=== PATIENT | male | born 1955 | race Caucasian/White ===

== ENCOUNTER → 2019-09-02 14:37 | Outpatient (BNVA) | payer MEDICARE, MEDICAID, SELFPAY | PROVIDERS: Family Provider Nurse Practitioner Family; PCP Nurse Practitioner Family; Visit Provider Specialist | DX: R29.90 Unspecified symptoms and signs involving the nervous system (principal); G50.0 Trigeminal neuralgia | CPT/HCPCS: 99213 ==

== ENCOUNTER → 2019-11-04 08:26 | Outpatient (BNVA) | payer MEDICARE, MEDICAID, OTHER, SELFPAY | PROVIDERS: Family Provider Nurse Practitioner Family; PCP Nurse Practitioner Family; Visit Provider Nurse Practitioner Family | DX: I10 Essential (primary) hypertension (principal); Z12.5 Encounter for screening for malignant neoplasm of prostate; M19.90 Unspecified osteoarthritis, unspecified site; Z13.6 Encounter for screening for cardiovascular disorders; F41.9 Anxiety disorder, unspecified; F32.9 Major depressive disorder, single episode, unspecified; E55.9 Vitamin D deficiency, unspecified; Z79.899 Other long term (current) drug therapy | CPT/HCPCS: 80053; 80061; 81003; 82306; 83036; 84443; 85025; G0103 ==

== ENCOUNTER 2020-06-23 13:40 | Outpatient (CLI) | payer MEDICARE, MEDICAID, OTHER, SELFPAY ==
--- NOTE | 2020-06-23 13:51 | XR_ITS ---
WS: [id number] LUMBAR SPINE: 7 VIEWS TECHNIQUE: AP, oblique, lateral, L5-S1 spot. Upright lateral projections in neutral, flexion and exte nsion. HISTORY: S33.5XXA - Sprain of ligaments of lumbar spine, initial e... COMPARISON: None available. Moderate rotation of vertebral bodies. 3 mm retrolisthesis of L3. Severe disc space narrowing at L4-5 and L5-S1 with associated facet joint arthritis. During flexion and extension there is no change in alignment. Mild compression deformity of L1. Mild foraminal narrowing at L4-5 and L5-S1. SI joints are symmetric bilaterally. No soft tissue abnormalities. Scattered atherosclerotic plaque within the aorta. XR/XR lumbar spine 6V w f/e [id number] IMPRESSION: 1. Severe degenerative disc disease at L4-5 and L5-S1 with associated facet riaz int arthritis. 2. Mild L1 compression fracture, age indeterminate. New since 11/07/2010 MRI. 3. No instability during flexion or extension. 4. Moderate atherosclerosis aorta.
--- NOTE | 2020-06-23 13:51 | XR_ITS ---
WS: [id number] THORACIC SPINE TECHNIQUE: AP and lateral views are performed. HISTORY: M54.6 - Pain in thoracic spine COMPARISON: None available. Normal posterior alignment. Mild RIGHT curvature mid thoracic spine. No fractures identified. Pedicle s are intact. XR/XR thoracic spine 3V* [id number] IMPRESSION: Mild curvature thoracic spine. No fractures.
== END 2020-06-23 13:41 | disposition home or self-care (01) ==
PROVIDERS: PCP Nurse Practitioner Family; Visit Provider Nurse Practitioner Family
DX: S33.5XXA Sprain of ligaments of lumbar spine, initial encounter (principal); I70.0 Atherosclerosis of aorta; S32.018A Other fracture of first lumbar vertebra, initial encounter for closed fracture; X58.XXXA Exposure to other specified factors, initial encounter
CPT/HCPCS: 72072; 72114

== ENCOUNTER 2020-07-07 12:42 | Outpatient (CLI) | payer MEDICARE, MEDICAID, SELFPAY ==
--- NOTE | 2020-07-07 13:00 | MR_ITS ---
WS: [id number] MRI LUMBAR SPINE NONCONTRAST TECHNIQUE: Sagittal T1, T2 and STIR imaging. Axial T1 and T2 imaging. CLINICAL INFORMATION: M51.36 - Other intervertebral disc degeneration, lumbar r... COMPARISON: MRI October 2010 FINDINGS: Mild lumbar curve. No acute compression. No high-grade central canal stenosis. Mild chronic compressi on superior endplates at L1 and L2. Disc space narrowing worse L4-L5 and L5-S1. This is progressed si nce 2010. L1-L2: Normal. L2-L3: Mild annular bulging. Spinal canal and foramen are patent. Mild facet arthropathy. L3-L4: Mild annular bulging. Small proximal left foraminal protrusion with mild left foraminal narrow ing. Narrowing of the left subarticular recess with contact of the traversing left L4 nerve root. Mod erate facet arthropathy. Right foramen is patent. L4-L5: Mild annular bulging with narrowing of the subarticular recess bilaterally. Slight encroachmen t traversing L5 nerve roots. Mild right greater than left foraminal narrowing. Mild facet arthropathy . L5-S1: Mild disc bulging and osteophytic ridging. Mild facet arthropathy. Spinal canal and foramen ar e patent. Small bilateral renal cysts. Visualized pelvic bony structures: Normal. Paravertebral soft tissues: Normal. MR/MR lumbar spine wo con* [id number] IMPRESSION: 1. Mild lumbar curve. No acute compression. No high-grade central canal stenos is. 2. Small left foraminal protrusion L3-4 with mild left foraminal narrowing. Co ntact of the exiting left L3 nerve root. Slight impingement traversing left L4 nerve root. 3. Right eccentric disc bulging L4-5 slightly contacts the exiting right L4 ne rve root with mild right L4-5 foraminal narrowing. 4. Mild to moderate facet arthropathy L3-L4 and L4-L5.
== END 2020-07-07 12:43 | disposition home or self-care (01) ==
LOC: RADSHAW 12:47
PROVIDERS: PCP Nurse Practitioner Family; Visit Provider Nurse Practitioner Family
DX: M51.36 Other intervertebral disc degeneration, lumbar region (principal); M47.816 Spondylosis without myelopathy or radiculopathy, lumbar region; M51.26 Other intervertebral disc displacement, lumbar region
CPT/HCPCS: 72148

== ENCOUNTER → 2020-08-27 14:55 | Outpatient (BNVA) | payer MEDICARE, MEDICAID, SELFPAY | PROVIDERS: PCP Nurse Practitioner Family; Visit Provider Orthopaedic Surgery | DX: Z20.822 Contact with and (suspected) exposure to COVID-19 (principal) | CPT/HCPCS: 87635 ==

== ENCOUNTER 2020-09-01 11:41 | Day surgery (SDC) | payer MEDICARE, MEDICAID, SELFPAY ==
[2020-08-31 12:45] VITALS: BMI 19.8
--- NOTE | 2020-08-31 14:02 | ANES.PREANE2 ---
Pre-Anesthetic Assessment Pre-Anesthetic Assessment: Height/Weight: Height 1.8 m Weight 64.41 kg Proposed Procedure: Operation Date: 09/01/20 13:25 Proposed Procedures p MIS Lumbar decompression L3/4 L4/5 59416 03149 m48.062(Not Applicable) - Mitchel Cloud, DO Was Beta Loree taken within 24 hours: N/A Was Clonidine taken within 24 hours: N/A Social: Social History: No alcohol and No tobacco Exam: Pre-Anes Outpt Exam: alert, oriented x 3, clear to auscultation bilaterally and regular rate & rhythm Airway: Submandibular: WNL Cervical ROM: WNL MP: 2 Dentition: Chipped GI: GI: GERD Musc/skel: Musc/skel: Lower Back Pain and OA/DJD Comments: Trigeminal neuralgia Neuropsych: Neuropsych: Anxiety Anesthetic Plan: ASA status: 3 Anesthesia: General PFSH Anesthesia PFSH: Medical History Anxiety and depression Back pain, lumbosacral DDD (degenerative disc disease), lumbar Essential hypertension Gastroesophageal reflux disease Lumbar back pain Lumbar back sprain Osteoarthritis Seborrheic dermatitis Thoracic back pain Trigeminal neuralgia Vitamin D deficiency Surgical History H/O shoulder surgery Family History Other Cancer Social History Smoking and tobacco status: never smoked Data Anesthesia Cardiac Studies: No Data to Display
--- NOTE | 2020-09-01 | XR_ITS ---
WS: [id number] Lumbar spine, C-arm fluoroscopy, 09/01/2020 Clinical Data: lumbar decompression Comparison: Lumbar spine, 06/23/2020. Findings: Dr. Cloud performed lumbar decompression at L3-L4. XR/XR lumbar spine 1V port [id number] Impression: Lumbar decompression.
--- NOTE | 2020-09-01 | SCC_ITS ---
Procedure Done: 1. L3/4 bilateral laminectomy with partial facetectomies 2. L4/5 bilateral laminectomies with partial facetectomies 16.8 seconds of fluoroscopic guidance, for a cumulative dose of 3.89 mGy, was provided to Dr. Cloud by the radiology department. C-arm images of the lumbar spine were saved for the patient's permanent record. [facility]
[2020-09-01 12:37] VITALS: BP 158/88; PULSE 55; RESP 18; TEMP 36.3; O2SAT 98
--- NOTE | 2020-09-01 12:51 | W.PM.OPSUD ---
Surgery/Procedure H&P Update DATE OF PROCEDURE: September 01, 2020 DATE H&P PERFORMED: 09/01/20 PREOP DIAGNOSIS: lumbar stenosis PLANNED PROCEDURE: Operation Date: 09/01/20 13:25 Proposed Procedures p MIS Lumbar decompression L3/4 L4/5 [id number] m48.062(Not Applicable) - Mitchel Cloud DO
--- NOTE | 2020-09-01 12:52 | P.HP_ITS ---
Providers/Chief Complaint Primary Care Provider: AYESHA Torres Chief Complaint: lumbar decompression [id number] History of Present Illness Hussain Parada is a 65 year old male patient here for evaluation of his low back pain. Onset: [gradual] Duration: [many years] Characteristics: [Sharp, stabbing, dull, aching] Severity: [moderate] Location: [low back] Radiating symptoms: [none] Aggravating factors: [prolonged standing & walking, bending, lifting, ] Alleviating factors: [nothing] Neuro deficits: denies numbness, tingling, weakness, incontinence of bowel/bladder, saddle anesthesia. Prior tx: [injections, narcotics, PT] Review of Systems Narrative: General ROS: negative for weight changes, fever ENT ROS: negative for nasal congestion, drainage or bleeding, sore throat, dysphagia or ear pain Eyes: PERRL Hematological and Lymphatic ROS: negative for swollen glands or abnormal bleeding Endocrine ROS: negative for polyuria/polydpsia or new changes in weight Respiratory ROS: negative for cough, shortness of breath, or wheezing Cardiovascular ROS: negative for chest pain or dyspnea on exertion Gastrointestinal ROS: negative for reflux, abdominal pain, change in bowel habits, or black or bloody stools Musculoskeletal ROS: negative for back pain, neck pain, or joint pain or swelling except for current problem Neurological ROS: negative for TIA or stoke symptoms Skin: no rashes Medications/Allergies Home Medications Medication Instructions Recorded Confirmed Last Taken Type lamotrigine 200 mg tablet 200 mg PO BID #60 tab 09/02/19 08/31/20 Unknown Rx cholecalciferol (vitamin D3) 1,250 50,000 unit PO .weekly 90 Days #12 11/14/19 09/01/20 08/31/20 Rx mcg (50,000 unit) capsule cap meloxicam 15 mg tablet See Rx Instructions .ROUTE 05/03/20 09/01/20 08/31/20 Rx .COMPLEX #90 tab pantoprazole 40 mg PO DAILY 08/31/20 09/01/20 08/30/20 History sennosides-docusate sodium [Stool 8.6 - 50 tab PO DAILY 08/31/20 08/31/20 Unknown History Softener-Laxative] Allergies Allergy/AdvReac Type Severity Reaction Status Date / Time No Known Allergies Allergy Verified 07/08/20 10:36 PFSH Acute PFSH: Medical History Anxiety and depression Back pain, lumbosacral DDD (degenerative disc disease), lumbar Essential hypertension Gastroesophageal reflux disease Lumbar back pain Lumbar back sprain Osteoarthritis Seborrheic dermatitis Thoracic back pain Trigeminal neuralgia Vitamin D deficiency Surgical History H/O shoulder surgery Family History Other Cancer Social History Smoking and tobacco status: never smoked Vitals/I&O/Wt Last Vital Signs Temp 97.4 F L 09/01/20 12:37 Pulse 55 L 09/01/20 12:37 Resp 18 09/01/20 12:37 BP 158/88 09/01/20 12:37 Pulse Ox 98 09/01/20 12:37 Weight last 48 hrs Weight 142 lb Physical Exam Narrative: EXAM NARRATIVE: CONSTITUTIONAL: The patient is a normal appearing [] in no apparent distress. GENERAL: Patient in no acute distress. CARDIAC: Regular rate and rhythm. CHEST: Normal inspiratory effort, normal respiratory rate. ABDOMEN: Soft and nontender. SKIN: Clear, warm and intact. NEURO?PSYCH: The patient is alert and oriented to person, place and time. Sensorv /SILT Motor StrengthShoulder abduction C5 5/5Wrist extension C6 5/5Elbow extension C7 5/5Hand [employer] Specialist C8 5/5Finger abduction T15/5 Radial/ Ulnar/ Median n intact LowerSensory (SILT)Motor StrengthHin flexion L2/3Ant/inner thigh 5/5Hip adduction L2/3 5/5Knee extension L4 Lat thigh, 5/5Toe dorsiflexion L5 5/5Ankle dorsiflexion L5/ R56Oqohukc flexion S1 5/5 DTRBleeps 2+Triceps 2+Brachioradialis 2+Patellar 2+Achilles 2+ MUSCULOSKELETAL: [] UPPEREXTREMITIES: The patient had full active ROM in fingers, wrist, elbow, and shoulder. The patient demonstrated ability to fully flex/extend/abduct/adduct fingers, make ok sign, cross 2nd/3rd digits, extend 1st digit fully.. Radial pulse 2+, CR<2 seconds. LOWER EXTREMITIES: Pt has full, active ROM of toes, ankle, knee, and hip. Dorsalis pedis/posterior tibialis pulses 2+, CR<2 seconds. SPINE: Skin warm, dry, intact. A&P Assessment and plan (1) Lumbar stenosis with neurogenic claudication: MIS decompression Status: Acute Attestations Medical Necessity Statement*: failed conservative tx Coding Level of Care Code Acute Portuguese Tutor for [facility] Fwd Diagnoses Lumbar stenosis with neurogenic claudication M48.062
--- NOTE | 2020-09-01 13:10 | P.ANESUD_ITS ---
Pre-Anesthetic Update Pre-Anesthetic Assessment: Date of Surgery/Procedure: 09/01/20 Preop Sonia gnosis: lumbar stenosis Proposed Procedure: Operation Date: 09/01/20 13:25 Proposed Procedures p MIS Lumbar decompression L3/4 L4/5 96473 00713 m48.062(Not Applicable) - Mitchel Cloud, DO Any changes to Pre-Anesthetic Assessment?: No Last Intake: Intake Last Liquid Date 08/31/20 Last Liquid Time 18:00 Last Solid Date 08/31/20 Last Solid Time 18:00 Vitals: Temperature 97.4 F L 09/01/20 12:37 Temperature Source Temporal Artery S can 09/01/20 12:37 Pulse Rate 55 L 09/01/20 12:37 Respiratory Rate 18 09/01/20 12:37 Blood Pressure 158/88 09/01/20 12:37 Blood Pressure Silvia n 111 09/01/20 12:37 Pulse Oximetry 98 09/01/20 12:37 Oxygen Delivery Me thod 09/01/20 12:37 Exam: Pre-Anes Outpt Exam: alert, oriented x 3, clear to auscultation bilaterally and regular rate & rhythm Cardiac Studies: No Data to Display
--- NOTE | 2020-09-01 13:17 | P.ANESUD_ITS ---
Pre-Anesthetic Update Pre-Anesthetic Assessment: Date of Surgery/Procedure: 09/01/20 Preop Sonia gnosis: lumbar stenosis Proposed Procedure: Operation Date: 09/01/20 13:25 Proposed Procedures p MIS Lumbar decompression L3/4 L4/5 [id number] m48.062(Not Applicable) - Mitchel Cloud, DO Any changes to Pre-Anesthetic Assessment?: No Last Intake: Intake Last Liquid Date 08/31/20 Last Liquid Time 18:00 Last Solid Date 08/31/20 Last Solid Time 18:00 Vitals: Temperature 97.4 F L 09/01/20 12:37 Temperature Source Temporal Artery S can 09/01/20 12:37 Pulse Rate 55 L 09/01/20 12:37 Respiratory Rate 18 09/01/20 12:37 Blood Pressure 158/88 09/01/20 12:37 Blood Pressure Silvia n 111 09/01/20 12:37 Pulse Oximetry 98 09/01/20 12:37 Oxygen Delivery Me thod 09/01/20 12:37 Exam: Pre-Anes Outpt Exam: alert, oriented x 3, clear to auscultation bilaterally and regular rate & rhythm Cardiac Studies: No Data to Display
--- NOTE | 2020-09-01 14:38 | PM.OP ---
Operative Report Date of procedure: September 01, 2020 Pre-op Diagnosis: lumbar stenosis Post-op diagnosis: same Procedure Done: 1. L3/4 bilateral laminectomy with partial facetectomies 2. L4/5 bilateral laminectomies with partial facetectomies Surgeon: Mitchel Cloud Anesthesia: General Estimated blood loss (mL): 10 Condition: stable Disposition: PACU Procedure: 1. L3/4 bilateral laminectomy with partial facetectomies 2. L4/5 bilateral laminectomies with partial facetectomies Patient is brought to the operative suite. After undergoing anesthesia they are placed in the supine position. All areas of impingement are well padded. Patient is then prepped and draped in the normal sterile fashion. A skin incision is made over the L4/5 level. This is confirmed under c-arm guidance. A series of dilators are passed and the tubular retractor is docked on the L4 lamina. A bovie is used to clear the soft tissue off the lamina and the L 4/5 facet joint. A high speed sean is then used to perform the laminectomy and take down the medial aspect of the L 4/5 facet joint. A kerrison rongeure was then used to take down the remaining lamina and smooth the edge of the laminectomy up to the point where the ligamentum flavum attaches. Attention was then brought to the medial aspect of the facet joint. The remaining medial aspect of the superior and inferior aspect of the facet joint were taken down with the kerrison from the pedicle of L4 to L 5. The facet joint had significant hypertrophy. Attention was then brought to the Ligamentum Flavum. The ligament was taken down from the lamina of L4 to L5 and out medially to the remaining facet joint. The ligament was thick. The dura was then exposed. The dura was in good repair. The L4 nerve was then traced with a curette out the L4/5 foramen and found to be adequately decompressed. The L5 nerve was traced with a curette around the L5 pedicle. The lateral recess was opened with a kerrison helping to further decompress the L5 nerve. Wound is then irrigated copiously with saline and surgiflo is used to stop any bleeding. The tubular retractor is removed A skin incision is made over the L3/4 level. This is confirmed under c-arm guidance. A series of dilators are passed and the tubular retractor is docked on the L3 lamina. A bovie is used to clear the soft tissue off the lamina and the L 3/4 facet joint. A high speed sean is then used to perform the laminectomy and take down the medial aspect of the L 3/4 facet joint. A kerrison rongeure was then used to take down the remaining lamina and smooth the edge of the laminectomy up to the point where the ligamentum flavum attaches. Attention was then brought to the medial aspect of the facet joint. The remaining medial aspect of the superior and inferior aspect of the facet joint were taken down with the kerrison from the pedicle of L3 to L 4. The facet joint had significant hypertrophy. Attention was then brought to the Ligamentum Flavum. The ligament was taken down from the lamina of L3 to L4 and out medially to the remaining facet joint. The ligament was thick. The dura was then exposed. The dura was in good repair. The L3 nerve was then traced with a curette out the L3/4 foramen and found to be adequately decompressed. The L4 nerve was traced with a curette around the L4 pedicle. The lateral recess was opened with a kerrison helping to further decompress the L4 nerve. Wound is then irrigated copiously with saline and surgiflo is used to stop any bleeding. The tubular retractor is removed and the wound is closed with vicryl and monocryl suture. Glue is then used to protect the wound. A sterile dressing is then placed. Patient was then placed in the supine position and transferred to the PACU in stable condition.
[2020-09-01 14:59] VITALS: BP 163/88; PULSE 71; RESP 13; TEMP 36.1; O2SAT 97
[2020-09-01 15:05] VITALS: BP 151/83; PULSE 66; RESP 15; O2SAT 96
--- NOTE | 2020-09-01 15:05 | P.PCN_ITS ---
Documented by User: Tarun Lizama CRNA 09/01/20 15:05 PACU note PACU note: VSS, Good respiratory effort, report to [employer]AN[employer] SUPERVISOR Post-Anesthesia Exam: awake
--- NOTE | 2020-09-01 15:05 | PM.PACU ---
Documented by User: Tarun Lizama CRNA 09/01/20 15:05 PACU note PACU note: VSS, Good respiratory effort, report to FOLLOW UP CLERK Post-Anesthesia Exam: awake
[2020-09-01 15:10] VITALS: BP 144/85; PULSE 64; RESP 18; TEMP 36.4; O2SAT 95
[2020-09-01 15:14] VITALS: BP 144/86; PULSE 69; RESP 18; TEMP 36.4; O2SAT 94
[2020-09-01 15:38] VITALS: BP 144/83; PULSE 58; RESP 18; TEMP 36.4; O2SAT 96
--- NOTE | 2020-09-01 17:11 | ANE.PACU2 ---
Inpatient post-anesthesia follow up: Airway intact: Yes Vital signs: Temperature 97.6 F Pulse Rate 58 Respiratory Rate 18 Blood Pressure 144/83 Pulse Oximetry 96 Oxygen Delivery Me thod Room Air Oxygen Flow Rate Fraction of Inspir ed Oxygen Hydration adequate: Yes Nausea and vomiting: No Pain level: 1 Mental status: Baseline
== END 2020-09-01 16:05 | disposition home or self-care (01) ==
PROVIDERS: PCP Nurse Practitioner Family; Visit Provider Orthopaedic Surgery
PROC: (CPT 63005; principal; 2020-09-01 13:05)
DX: M48.062 Spinal stenosis, lumbar region with neurogenic claudication (principal); K21.9 Gastro-esophageal reflux disease without esophagitis; F41.9 Anxiety disorder, unspecified; I10 Essential (primary) hypertension; M19.90 Unspecified osteoarthritis, unspecified site; E55.9 Vitamin D deficiency, unspecified
CPT/HCPCS: 63047; 63048; 72020; 76000; J0690; J1100; J2405; J2704; J2710; J3010; J3490

== ENCOUNTER → 2020-11-23 11:00 | Outpatient (BNVA) | payer MEDICARE, MEDICAID, SELFPAY | PROVIDERS: PCP Nurse Practitioner Family; Visit Provider Nurse Practitioner Family | DX: E55.9 Vitamin D deficiency, unspecified (principal); I10 Essential (primary) hypertension; Z79.899 Other long term (current) drug therapy; Z12.5 Encounter for screening for malignant neoplasm of prostate; R07.81 Pleurodynia | CPT/HCPCS: 80053; 80061; 81003; 82306; 83036; 84443; 85025; G0103 ==

== ENCOUNTER → 2020-11-30 13:31 | Outpatient (BNVA) | payer MEDICARE, MEDICAID, SELFPAY | PROVIDERS: PCP Nurse Practitioner Family; Visit Provider Specialist | DX: Z09 Encounter for follow-up examination after completed treatment for conditions other than malignant neoplasm (principal); Z86.69 Personal history of other diseases of the nervous system and sense organs | CPT/HCPCS: 99212 ==

== ENCOUNTER → 2021-05-26 08:47 | Outpatient (BNVA) | payer MEDICARE, MEDICAID, SELFPAY | PROVIDERS: PCP Nurse Practitioner; Visit Provider Nurse Practitioner | DX: Z79.899 Other long term (current) drug therapy (principal); I10 Essential (primary) hypertension | CPT/HCPCS: 80053; 80061; 85025 ==

== ENCOUNTER → 2021-05-31 10:19 | Outpatient (BNVA) | payer MEDICARE, MEDICAID, SELFPAY | PROVIDERS: PCP Nurse Practitioner; Visit Provider Nurse Practitioner | DX: E87.5 Hyperkalemia (principal) | CPT/HCPCS: 84132 ==

== ENCOUNTER → 2021-11-17 11:28 | Outpatient (BNVA) | payer MEDICARE, MEDICAID, SELFPAY | PROVIDERS: PCP Nurse Practitioner; Visit Provider Family Medicine | DX: R05.9 Cough, unspecified (principal); Z20.822 Contact with and (suspected) exposure to COVID-19 | CPT/HCPCS: 87426 ==

== ENCOUNTER → 2022-06-02 08:32 | Outpatient (BNVA) | payer MEDICARE, MEDICAID, SELFPAY | PROVIDERS: PCP Nurse Practitioner; Visit Provider Nurse Practitioner | DX: Z79.899 Other long term (current) drug therapy (principal) | CPT/HCPCS: 80053; 80061; 82306; 84443; 85025 ==

== ENCOUNTER → 2022-10-25 15:10 | Outpatient (BNVA) | payer MEDICARE, MEDICAID, SELFPAY | PROVIDERS: PCP Nurse Practitioner; Referring Provider Nurse Practitioner; Visit Provider Dermatology | DX: L57.0 Actinic keratosis (principal); L81.4 Other melanin hyperpigmentation; L82.1 Other seborrheic keratosis; Z85.828 Personal history of other malignant neoplasm of skin; L21.8 Other seborrheic dermatitis | CPT/HCPCS: 17000; 17003; 99204 ==

== ENCOUNTER → 2022-11-08 09:40 | Outpatient (BNVA) | payer MEDICARE, MEDICAID, SELFPAY | PROVIDERS: PCP Nurse Practitioner; Visit Provider Nurse Practitioner Family | DX: R50.9 Fever, unspecified (principal); J40 Bronchitis, not specified as acute or chronic | CPT/HCPCS: 87426 ==

== ENCOUNTER → 2023-03-23 13:13 | Outpatient (BNVA) | payer MEDICARE, MEDICAID, SELFPAY | PROVIDERS: PCP Nurse Practitioner Family; Visit Provider Nurse Practitioner Family | DX: R68.89 Other general symptoms and signs (principal) | CPT/HCPCS: 87400 ==

== ENCOUNTER → 2023-05-25 08:55 | Outpatient (BNVA) | payer MEDICARE, MEDICAID, SELFPAY | PROVIDERS: PCP Nurse Practitioner Family; Visit Provider Nurse Practitioner Family | DX: Z79.899 Other long term (current) drug therapy (principal); I10 Essential (primary) hypertension; Z12.5 Encounter for screening for malignant neoplasm of prostate; Z13.6 Encounter for screening for cardiovascular disorders | CPT/HCPCS: 80053; 80061; 81003; 83036; 84443; 85025; G0103 ==

== ENCOUNTER 2023-10-08 09:28 | Emergency (ER) | payer MEDICARE, MEDICAID, SELFPAY ==
[2023-10-08 09:30] VITALS: BP 151/101; PULSE 64; RESP 17; TEMP 36.4; O2SAT 95; BMI 21.2
--- NOTE | 2023-10-08 09:36 | ED_ITS ---
HPI - Back Pain/Injury General: Chief Complaint: Back Pain/Injury Stated Complaint: back pain Time Seen by Provider: 10/08/23 09:35 Source: patient Mode of arrival: EMS Limitations: no limitations History of Present Illness: Patient is a nice 68-year-old male who presents to ED today with a complaint of left-sided lower back pain with radiation into his left leg. He states he has had this ongoing but over the past 2 days or so it seems to be worse. He states pain radiates all the way down to my toes and feels like sciatica . Patient states he had similar symptoms on the right side that was treated successfully with surgery by Dr. Cloud in 2020. Patient states he is having difficulty ambulating secondary to pain. He is not having any saddle anesthesia. No urinary retention or fecal incontinence. Patient initially went to [facility] and referred to the emergency department via EMS. He was given 4 mg of Zofran 100 mcg of Fentanyl and route. MD elicited complaint: back pain Pertinent past history: prior back pain Onset (ago): day(s) Timing: constant Severity: severe Similar Symptoms Previously: Yes Quality: burning Location: left lower back Radiation: left leg below the knee Exacerbating factors: movement and walking Relieving factors: none Associated symptoms: Reports no associated symptoms and difficulty walking; Deny abdominal pain, chills, dysuria, fatigue, fever(s) or hematuria Work related injury: No Related Data Home Medications Medication Instructions Recorded Confirmed naproxen 500 mg tablet 500 mg PO BID PRN Pain 10/08/23 10/08/23 sennosides 8.6 mg-docusate sodium 1 - 2 tab PO BID PRN Constipation 10/08/23 10/08/23 50 mg tablet triamcinolone acetonide 0.1 % 1 applic topical TID PRN Skin 10/08/23 10/08/23 topical ointment Irritation Previous Rx's Medication Instructions Recorded pantoprazole 40 mg tablet,delayed 40 mg PO DAILY #90 tabs 08/28/23 release (Protonix) cyclobenzaprine 10 mg tablet 10 mg PO .Bedtime 30 days #30 tabs 09/06/23 hydrocodone 5 mg-acetaminophen 325 1 tab PO Q6H PRN pain #14 tabs 10/08/23 mg tablet ibuprofen 800 mg tablet 800 mg PO Q8H PRN pain #20 tabs 10/08/23 methocarbamol 500 mg tablet 1,000 mg (2 x 500 mg) PO Q8H #30 10/08/23 tabs methylprednisolone 4 mg tablets in See Rx Instructions PO .COMPLEX 10/08/23 a dose pack (Medrol (Lenny)) #21 ea Allergies Allergy/AdvReac Type Severity Reaction Status Date / Time No Known Allergies Allergy Verified 10/08/23 08:39 Review of Systems Const: Denies: fever(s), chills, body aches, fatigue or malaise Card: Denies: chest pain Resp: Denies: dyspnea GI: Denies: abdominal pain : Denies: flank pain, dysuria or hematuria Musc: Reports: back pain; Denies: neck pain, extremity pain, extremity swelling, joint pain or joint swelling Skin/Breast: Denies: rash Neuro: Reports: numbness in extremities and difficulty walking; Denies: headache(s), weakness in extremities, lack of coordination or dizziness PFSH ED PFSH: Medical History Ganglion cyst of foot Upper respiratory infection Colon polyps Medication management Prostate cancer screening Back pain, lumbosacral DDD (degenerative disc disease), lumbar Thoracic back pain Lumbar back sprain Lumbar back pain Gastroesophageal reflux disease Seborrheic dermatitis Vitamin D deficiency Anxiety and depression Trigeminal neuralgia Essential hypertension Osteoarthritis Surgical History H/O shoulder surgery Family History Other Cancer Social History Smoking and tobacco/nicotine status: former use of tobacco/nicotine Physical Exam Const: COMMON NORMALS: no acute distress, average body habitus, patient oriented x3, no limitations, healthy appearing, alert and well nourished Resp: COMMON NORMALS: normal respiratory effort and clear to auscultation bilaterally AUSCULTATION: clear to auscultation bilaterally Cardio: COMMON NORMALS: regular rate and regular rhythm RATE: regular rate RHYTHM: regular rhythm GI: COMMON NORMALS: Soft to palpation, non-tender and no masses PALPATION: Yes Soft to palpation : COMMON NORMALS: Yes no CVA tenderness BLADDER/KIDNEY EXAM: Yes no CVA tenderness Back/Pelvis: COMMON NORMALS: no CVA tenderness THORACIC SPINE/UPPER BACK: No thoracic spinal tenderness LUMBAR SPINE/LOWER BACK: No lumbar spinal tenderness and No mass present PELVIS: Yes buttocks normal and Yes sciatic notch tenderness on the left SACRUM: no tenderness COCCYX: no tenderness Extremity: COMMON NORMALS: normal to inspection, full ROM (pain to L lower back with passive ROM of L LE), capillary refill normal, no joint enlargement, no clubbing, cyanosis or edema, no calf tenderness and no pedal edema GENERAL: Yes normal exam except as noted Neuro: COMMON NORMALS: patient oriented x3, moves all extremities, no focal motor deficits and no sensory deficits noted SENSORIUM/ORIENTATION: Yes alert GAIT: Yes Unable to assess gait (will assess after pain control) SENSORY EXAM: Yes other (normal sensation to bilateral LEs) MOTOR EXAM: 5/5 motor strength present throughout Skin: COMMON NORMALS: no rashes or lesions noted GENERAL SKIN EXAM: no rashes or lesions noted Course Vital Signs: Vital signs: Vital Signs Temperature 97.5 F L 10/08/23 09:30 Pulse Rate 53 L 10/08/23 12:06 Respiratory Rate 17 10/08/23 12:06 Blood Pressure 156/79 10/08/23 12:54 Pulse Oximetry 98 10/08/23 12:54 Oxygen Delivery Me thod Room Air 10/08/23 12:54 MDM - Back Pain/Injury Medical Decision Making Patient here for what sounds to be left-sided sciatica back pain. Patient was initially trialed with IV medications and was still having difficulty with ambulation thus CT imaging performed. This is essentially unremarkable apart from degenerative changes. Patient was eventually able to ambulate here without difficulty or assistance. He is not having any acute neurologic deficits. Will have him follow-up with Dr. Cloud for outpatient evaluation/possible MRI imaging. Return to ED precautions given. Differential Diagnosis Likely lumbar radiculopathy, sciatica and strain of lumbar region Medical Records I reviewed the patient's medical records. Labs I reviewed the patient's lab results. Radiology Impressions Lumbar Spine CT 10/08/23 11:18 IMPRESSION: Degenerative changes as described above but no acute pathology detected. All radiology interpretation(s) finalized by discharge Discharge Plan Discharge Patient Disposition: Home Clinical Impression: DDD (degenerative disc disease), lumbar, Acute left-sided back pain with scia luís Condition: Stable Prescriptions: New methocarbamol 500 mg tablet 1,000 mg PO Q8H Qty: 30 0RF ibuprofen 800 mg tablet 800 mg PO Q8H PRN (Reason: pain) Qty: 20 0RF hydrocodone-acetaminophen 5-325 mg tablet 1 tab PO Q6H PRN (Reason: pain) Qty: 14 0RF methylprednisolone [Medrol (Lenny)] 4 mg tablets,dose pack See Rx Instructions .ROUTE .COMPLEX Qty: 21 0RF Rx Instructions: orally per package directions Held cyclobenzaprine 10 mg tablet 10 mg PO .Bedtime 30 Days Qty: 30 0RF Hold Instructions: while taking methocarbamol naproxen 500 mg tablet 500 mg PO BID PRN (Reason: Pain) Hold Instructions: While taking 800 mg ibuprofen No Action pantoprazole [Protonix] 40 mg tablet,delayed release (DR/EC) 40 mg PO DAILY Qty: 90 1RF sennosides-docusate sodium 8.6-50 mg tablet 1 - 2 tab PO BID PRN (Reason: Constipation) triamcinolone acetonide 0.1 % ointment 1 applic topical TID PRN (Reason: Skin Irritation) Discharge Orders: Discharge ED (Routine); Ordered 10/08/23 Ordered By: Paige Diane Referrals: BROCK Queen, [facility] [Primary Care Provider] - Patient Instructions: Lumbar Radiculopathy (ED), Opioid Safety, Pain Management, Sciatica Activity Restrictions/Additional Instructions: As we discussed we will have case management set you up with an appointment with Dr. Cloud for further evaluation. He may end up ordering MRI imaging of your back and discussing with you other alternatives for treatment if indicated. Coding Level of Care Code ED Clothes Marker for Tay Grady
[2023-10-08] MEDS: morphine 4 mg/mL SDV 1 mL IVP ×2 (10:14→12:54)
[2023-10-08] MEDS: dexamethasone 10 mg/mL INJ 8 MG IV (10:15)
[2023-10-08] MEDS: orphenadrine 30 mg/mL Inj 2 mL 60 MG IV (10:17)
[2023-10-08] MEDS: ketorolac 30 mg/mL INJ IVP (10:18)
--- NOTE | 2023-10-08 11:18 | CTR_ITS ---
PROCEDURE INFORMATION: Exam: CT Lumbar Spine Without Contrast Exam date and time: 10/08/2023 12:19 PM Age: 68 years old Clinical indication: Low back pain; Additional info: Back pain, cannot ambulate TECHNIQUE: Imaging protocol: Computed tomography of the lumbar spine without contrast. Total images: 629 Radiation optimization: All CT scans at this facility use at least one of these dose optimization techniques: automated exposure control; mA and/or kV adjustment per patient size (includes targeted exams where dose is matched to clinical indication); or iterative reconstruction. COMPARISON: MR lumbar spine wo con* [id number] 07/07/2020 1:13 PM RADIATION DOSE METRICS: Total DLP (mGy-cm): 411 FINDINGS: Bones/joints: Mild compression fracture chronic noted at L1. L4-S1 degenerative disc disease with disc space narrowing and osteophyte formation. Vertebral body heights are maintained. No evidence of spondylolysis nor spondylolisthesis. Soft tissues: Unremarkable. Other findings: Moderate atherosclerotic disease burden is evident. CT/CT lumbar spine wo con* [id number] IMPRESSION: Degenerative changes as described above but no acute pathology detected.
[2023-10-08 12:06] VITALS: BP 163/84; PULSE 53; RESP 17; O2SAT 98
[2023-10-08 12:54] VITALS: BP 156/79; O2SAT 98
--- NOTE | 2023-10-09 08:18 | DCPLANNER ---
message sent to [facility] low back pain/ radiculopathy.
== END 2023-10-08 15:14 | disposition home or self-care (01) ==
PROVIDERS: Emergency Provider Physician Assistant; PCP Nurse Practitioner Family
DX: M51.36 Other intervertebral disc degeneration, lumbar region (principal); M54.42 Lumbago with sciatica, left side; Z87.891 Personal history of nicotine dependence; I10 Essential (primary) hypertension
CPT/HCPCS: 72131; 96374; 96375; 96376; 99285; J1100; J1885; J2270; J2360

== ENCOUNTER → 2023-10-11 11:11 | Outpatient (BNVA) | payer MEDICARE, MEDICAID, SELFPAY | PROVIDERS: PCP Nurse Practitioner Family; Visit Provider Orthopaedic Surgery | DX: M54.9 Dorsalgia, unspecified (principal); M25.552 Pain in left hip | CPT/HCPCS: 72110; 73502; 99214 ==

== ENCOUNTER 2023-11-06 06:00 | Outpatient (RCR) | payer MEDICARE, MEDICAID, SELFPAY | END 2023-11-19 23:59 | disposition home or self-care (01) | LOC: WPT 06:00 | PROVIDERS: PCP Nurse Practitioner Family; Visit Provider Nurse Practitioner Family | DX: M54.50 Low back pain, unspecified (principal) | CPT/HCPCS: 97110; 97112; 97161; 97530 ==

== ENCOUNTER 2023-11-20 06:00 | Outpatient (RCR) | payer MEDICARE, MEDICAID, SELFPAY | END 2023-12-20 23:59 | disposition home or self-care (01) | LOC: WPT 06:00 | PROVIDERS: PCP Nurse Practitioner Family; Visit Provider Nurse Practitioner Family | DX: M54.50 Low back pain, unspecified (principal) | CPT/HCPCS: 97110; 97112; 97530 ==

== ENCOUNTER 2024-01-01 20:53 | Observation (INO) | payer MEDICARE, MEDICAID, SELFPAY ==
[2024-01-01 20:55] VITALS: BP 98/68; PULSE 75; RESP 18; TEMP 36.6; O2SAT 88; BMI 17.9
--- NOTE | 2024-01-01 20:55 | XRR_ITS ---
PROCEDURE INFORMATION: Exam: XR Chest Exam date and time: 01/01/2024 9:09 PM Age: 68 years old Clinical indication: Pain; Chest pressure; Additional info: Cp TECHNIQUE: Imaging protocol: Radiologic exam of the chest. Views: 1 view. COMPARISON: CR XR thoracic spine 3V* [id number] 06/23/2020 2:08 PM FINDINGS: Lungs: Bibasilar airspace infiltrates. Pleural spaces: Unremarkable. No pleural effusion. No pneumothorax. Heart/Mediastinum: Unremarkable. No cardiomegaly. Bones/joints: Unremarkable. XR/XR chest 1V portable [id number] IMPRESSION: Bibasilar airspace infiltrates.
--- NOTE | 2024-01-01 20:55 | ECG_ITS ---
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 Measurements Intervals Tiro Rate: 80 P: 45 AL: 141 QRS: 17 QRSD: 92 T: 31 QT: 378 QTc: 437 Interpretive Statements SINUS RHYTHM NONSPECIFIC ST ELEVATION [0.05+ mV ST ELEVATION] No previous ECG available for comparison Electronically Signed On 01-03-2024 21:37:21 BRICKLAYER SUPERVISOR by Tari Tesfaye M.D. [email or web address]
--- NOTE | 2024-01-01 21:07 | ED_ITS ---
Documented by User: Lizy You MD 01/01/24 21:52 HPI - Chest Pain 2 General: Chief Complaint: Chest Pain Stated Complaint: CHEST PAIN Time Seen by Provider: 01/01/24 20:55 Source: patient and EMS Mode of arrival: EMS Limitations: no limitations History of Present Illness: 68-year-old male states has been having sharp left-sided chest pain since last night. He states been very sharp pains been made worse with palpation along with inspiration states he feels like he cannot get a full inspiration. His pains improved he did receive nitro aspirin and fentanyl and route. EMS states that he is hypoxic on room air they placed him on 2 L and did turn his oxygen off and he did desaturate to 88% and put him back on 2 L he denies any cough or fever denies any vomiting Associated symptoms: Reports dyspnea; Deny abdominal pain, fever(s), nausea or vomiting Related Data Home Medications Medication Instructions Recorded Confirmed naproxen 500 mg tablet 500 mg PO BID PRN Pain 10/08/23 12/27/23 sennosides 8.6 mg-docusate sodium 1 - 2 tab PO BID PRN Constipation 10/08/23 12/27/23 50 mg tablet triamcinolone acetonide 0.1 % 1 applic topical TID PRN Skin 10/08/23 12/27/23 topical ointment Irritation Previous Rx's Medication Instructions Recorded pantoprazole 40 mg tablet,delayed 40 mg PO DAILY #90 tabs 08/28/23 release (Protonix) cyclobenzaprine 10 mg tablet 10 mg PO .Bedtime 30 days #30 tabs 09/06/23 ibuprofen 800 mg tablet 800 mg PO Q8H PRN pain #20 tabs 10/08/23 methocarbamol 500 mg tablet 1,000 mg (2 x 500 mg) PO Q8H #30 10/08/23 tabs hydrocodone 5 mg-acetaminophen 325 1 tab PO Q6H PRN pain 7 days #21 10/29/23 mg tablet tabs lisinopril 10 mg tablet 10 mg PO DAILY #30 tabs 12/18/23 zwsdhovb-eiszsujjn-aflpijpw 3.5 1 drp ophthalmic (eye) Q6H #5 mL 12/27/23 mg/mL-10,000 unit/mL-0.1% eye drops Allergies Allergy/AdvReac Type Severity Reaction Status Date / Time No Known Allergies Allergy Verified 01/01/24 21:05 Review of Systems 2 Const: Denies: fever(s), chills, body aches or change in appetite ENMT: Denies: throat pain or dental pain Card: Reports: chest pain Resp: Reports: dyspnea GI: Denies: abdominal pain, nausea, vomiting or diarrhea Musc: Denies: neck pain or back pain Skin/Breast: Denies: rash Neuro: Denies: headache(s) PFSH ED 2 PFSH: Medical History Conjunctivitis History of skin cancer Skin lesions Actinic keratosis Hornet sting Ganglion cyst of foot Upper respiratory infection Colon polyps Medication management Prostate cancer screening Back pain, lumbosacral DDD (degenerative disc disease), lumbar Thoracic back pain Lumbar back sprain Lumbar back pain Gastroesophageal reflux disease Seborrheic dermatitis Vitamin D deficiency Anxiety and depression Trigeminal neuralgia Essential hypertension Osteoarthritis Surgical History H/O shoulder surgery Family History Other Cancer Social History Smoking and tobacco/nicotine status: tobacco/nicotine user, details unknown Physical Exam 2 Const: COMMON NORMALS: patient oriented x3 HENMT: COMMON NORMALS: normocephalic and atraumatic HEAD & SCALP: n ormocephalic and atraumatic Neck/C-Spine: COMMON NORMALS: full ROM and supple Chest: COMMONS NORMALS: normal inspection of the chest OTHER: point tender over left chest wall pain Resp: COMMON NORMALS: normal respiratory effort, No retractions, No use of accessory muscles and clear to auscultation bilaterally AUSCULTATION: clear to auscultation bilaterally Cardio: COMMON NORMALS: regular rate, regular rhythm and No murmurs present (Cardio) RATE: regular rate RHYTHM: regular rhythm Extremity: COMMON NORMALS: normal to inspection and full ROM Neuro: COMMON NORMALS: patient oriented x3, moves all extremities and no focal motor deficits Psych: COMMON NORMALS: mental status grossly normal, Normal thought process present and cooperative THOUGHT PROCESS: Normal thought process present Skin: COMMON NORMALS: no rashes or lesions noted and no wounds GENERAL SKIN EXAM: no rashes or lesions noted Course 2 Vital Signs: Vital signs: Vital Signs Temperature 97.9 F 01/01/24 20:55 Pulse Rate 82 01/01/24 23:57 Respiratory Rate 18 01/01/24 23:57 Blood Pressure 124/68 01/01/24 23:57 Pulse Oximetry 93 01/01/24 23:57 Oxygen Delivery Me thod Nasal Cannula 01/01/24 23:57 Oxygen Flow Rate 2 01/01/24 23:57 MDM - Chest Pain Medical Records I reviewed the patient's medical records. Lab Data I reviewed the patient's lab results. 01/01/24 21:05 01/01/24 21:05 Radiology Impressions Chest X-Ray 01/01/24 20:55 IMPRESSION: Bibasilar airspace infiltrates. Chest CTA 01/01/24 22:21 IMPRESSION: 1. Left pulmonary embolism with thrombus extending into the upper, interlobar, lingula and lower lobe branches. No evidence of right heart strain. Possible pulmonary infarct in the left lower lobe. 2. 6.6 mm nodule in the right middle lobe. COMMENTS: The presence of pulmonary emphysema on CT is an independent risk factor for lung cancer. In the absence of a history or active diagnosis of lung cancer, it is recommended that this patient with emphysema be evaluated for enrollment in a low dose CT lung cancer screening program. REFERENCES: Zina Angulo, et al. Guidelines for Management of Incidental Pulmonary Nodules Detected on CT Images: From the Fleischner Society 2017. Radiology. 2017;284(1):228-243. Laboratory Results WBC 10.81 10^3/uL (3.29-11.43) 01/01/24 21:05 RBC 5.06 10^6/uL (3.85-5.65) 01/01/24 21:05 Hgb 15.90 g/dL (11.27-16.99) 01/01/24 21:05 Hct 46.0 % (37-53) 01/01/24 21:05 MCV 90.9 fl (82-101) 01/01/24 21:05 MCH 31.4 pg (27-33) 01/01/24 21:05 MCHC 34.6 g/dL (30-55) 01/01/24 21:05 RDW 11.1 % (12.1-15.1) L 01/01/24 21:05 Plt Count 307 10^3/cmm (157-399) 01/01/24 21:05 MPV 10.2 fL (7.4-10.4) 01/01/24 21:05 Neut % (Auto) 63.2 % 01/01/24 21:05 Lymph % (Auto) 23.6 % 01/01/24 21:05 Coffee % (Auto) 10.9 % 01/01/24 21:05 Eos % (Auto) 1.4 % 01/01/24 21:05 Baso % (Auto) 0.5 % 01/01/24 21:05 Neut # (Auto) 6.84 10^3/uL (1.8-7.7) 01/01/24 21:05 Lymph # (Auto) 2.6 10^3/uL (0.8-4.8) 01/01/24 21:05 Coffee # (Auto) 1.2 10^3/uL (0.2-0.9) H 01/01/24 21:05 Eos # (Auto) 0.2 10^3/uL (0.0-0.8) 01/01/24 21:05 Baso # (Auto) 0.1 10^3/uL (0.0-0.1) 01/01/24 21:05 Nucleated RBC % (auto) 0 % 01/01/24 21:05 Nucleated RBCs # 0.0 /100WBC 01/01/24 21:05 PT 13.80 SECONDS (12.1-14.9) 01/01/24 21:54 INR 1.03 (0.8-1.2) 01/01/24 21:54 D-Dimer 2.44 ug/mLFEU (0-0.59) H 01/01/24 21:54 Sodium 135 mmol/L (136-145) L 01/01/24 21:05 Potassium 4.0 mmol/L (3.5-5.1) 01/01/24 21:05 Chloride 97 mmol/L (98-107) L 01/01/24 21:05 Carbon Dioxide 25 mmol/L (22-29) 01/01/24 21:05 Anion Gap 17.0 (5-19) 01/01/24 21:05 BUN 26 mg/dL (8-23) H 01/01/24 21:05 Creatinine 0.9 mg/dL (0.7-1.2) 01/01/24 21:05 GFR Calculation 83.7 mL/min (90-130) L 01/01/24 21:05 Glucose 110 mg/dL (65-115) 01/01/24 21:05 Calculated Osmolality 285 mOsm/kg (285-295) 01/01/24 21:05 Calcium 10.2 mg/dL (8.5-10.5) 01/01/24 21:05 Total Bilirubin 0.6 mg/dL (0.15-1.2) 01/01/24 21:05 AST 12 U/L (0-40) 01/01/24 21:05 ALT 7 U/L (0-41) 01/01/24 21:05 Alkaline Phosphatase 74 U/L (40-130) 01/01/24 21:05 Troponin T Baseline 21 ng/L (0-15) H 01/01/24 21:05 Troponin T 120 Minute 21.59 ng/L (0-15) H 01/01/24 22:50 Delta Troponin T 0.59 ABS# (0-10) 01/01/24 22:50 Total Protein 7.3 g/dL (6.6-8.7) 01/01/24 21:05 Albumin 4.0 g/dL (3.5-5.2) 01/01/24 21:05 Globulin 3.3 g/dL (1.3-4.6) 01/01/24 21:05 Lipase 38 U/L (13-60) 01/01/24 21:05 All radiology interpretation(s) finalized by discharge EKG Data EKG 1: I personally reviewed and interpreted this EKG as follows: EKG interpretation date: 01/01/24 EKG interpretation time: 21:06 Interpretation: nsr hr 80 no stemi qrs 92 qtc 414 Discharge Plan Discharge Patient Disposition: Admitted As Inpatient Clinical Impression: Pulmonary embolism, Hypoxemia Condition: Stable Coding Level of Care Code ED Division Leader for Chg Fwd Documented by User: Key Hollis MD 01/02/24 00:15 HPI - Chest Pain 2 General: Chief Complaint: Chest Pain Stated Complaint: CHEST PAIN Time Seen by Provider: 01/01/24 20:55 Related Data Home Medications Medication Instructions Recorded Confirmed naproxen 500 mg tablet 500 mg PO BID PRN Pain 10/08/23 12/27/23 sennosides 8.6 mg-docusate sodium 1 - 2 tab PO BID PRN Constipation 10/08/23 12/27/23 50 mg tablet triamcinolone acetonide 0.1 % 1 applic topical TID PRN Skin 10/08/23 12/27/23 topical ointment Irritation Previous Rx's Medication Instructions Recorded pantoprazole 40 mg tablet,delayed 40 mg PO DAILY #90 tabs 08/28/23 release (Protonix) cyclobenzaprine 10 mg tablet 10 mg PO .Bedtime 30 days #30 tabs 09/06/23 ibuprofen 800 mg tablet 800 mg PO Q8H PRN pain #20 tabs 10/08/23 methocarbamol 500 mg tablet 1,000 mg (2 x 500 mg) PO Q8H #30 10/08/23 tabs hydrocodone 5 mg-acetaminophen 325 1 tab PO Q6H PRN pain 7 days #21 10/29/23 mg tablet tabs lisinopril 10 mg tablet 10 mg PO DAILY #30 tabs 12/18/23 [id number]-jrtgiywsy-lifvidcy 3.5 1 drp ophthalmic (eye) Q6H #5 mL 12/27/23 mg/mL-10,000 unit/mL-0.1% eye drops Allergies Allergy/AdvReac Type Severity Reaction Status Date / Time No Known Allergies Allergy Verified 01/01/24 21:05 PFSH ED 2 PFSH: Medical History Conjunctivitis History of skin cancer Skin lesions Actinic keratosis Hornet sting Ganglion cyst of foot Upper respiratory infection Colon polyps Medication management Prostate cancer screening Back pain, lumbosacral DDD (degenerative disc disease), lumbar Thoracic back pain Lumbar back sprain Lumbar back pain Gastroesophageal reflux disease Seborrheic dermatitis Vitamin D deficiency Anxiety and depression Trigeminal neuralgia Essential hypertension Osteoarthritis Surgical History H/O shoulder surgery Family History Other Cancer Social History Smoking and tobacco/nicotine status: tobacco/nicotine user, details unknown Course 2 Vital Signs: Vital signs: Vital Signs Temperature 97.9 F 01/01/24 20:55 Pulse Rate 82 01/01/24 23:57 Respiratory Rate 18 01/01/24 23:57 Blood Pressure 124/68 01/01/24 23:57 Pulse Oximetry 93 01/01/24 23:57 Oxygen Delivery Pr thod Nasal Cannula 01/01/24 23:57 Oxygen Flow Rate 2 01/01/24 23:57 MDM - Chest Pain Medical Decision Making Patient care transitioned to wv at shift change. Awaiting CT results. Elevated D-dimer. Possible pneumonia versus PE versus both. CT shows a large left PE with possible infarct. No signs of right heart strain. This was reviewed and interpreted by myself the emergency room physician. I also reviewed the radiology report. Consultation: I spoke with Dr. Harvey who is on-call for the hospitalist service who is admitting the patient. He is going to initiate Lovenox. Assessment and plan: Pulmonary embolism Hypoxemia -I discussed the patient with the hospitalist on-call who is admitting the patient. - Discussed findings and plan with patient. Answered any questions. - All laboratory values were reviewed and interpreted personally by myself, the ER physician - All imaging was reviewed and interpreted personally by myself, the ER physician. - Evaluation and treatment of this problem were appropriate in the emergency setting Lab Data 01/01/24 21:05 01/01/24 21:05 Radiology Impressions Chest X-Ray 01/01/24 20:55 IMPRESSION: Bibasilar airspace infiltrates. Chest CTA 01/01/24 22:21 IMPRESSION: 1. Left pulmonary embolism with thrombus extending into the upper, interlobar, lingula and lower lobe branches. No evidence of right heart strain. Possible pulmonary infarct in the left lower lobe. 2. 6.6 mm nodule in the right middle lobe. COMMENTS: The presence of pulmonary emphysema on CT is an independent risk factor for lung cancer. In the absence of a history or active diagnosis of lung cancer, it is recommended that this patient with emphysema be evaluated for enrollment in a low dose CT lung cancer screening program. REFERENCES: Zina Angulo et al. Guidelines for Management of Incidental Pulmonary Nodules Detected on CT Images: From the Fleischner Society 2017. Radiology. 2017;284(1):228-243. Laboratory Results WBC 10.81 10^3/uL (3.29-11.43) 01/01/24 21:05 RBC 5.06 10^6/uL (3.85-5.65) 01/01/24 21:05 Hgb 15.90 g/dL (11.27-16.99) 01/01/24 21:05 Hct 46.0 % (37-53) 01/01/24 21:05 MCV 90.9 fl (82-101) 01/01/24 21:05 MCH 31.4 pg (27-33) 01/01/24 21:05 MCHC 34.6 g/dL (30-55) 01/01/24 21:05 RDW 11.1 % (12.1-15.1) L 01/01/24 21:05 Plt Count 307 10^3/cmm (157-399) 01/01/24 21:05 MPV 10.2 fL (7.4-10.4) 01/01/24 21:05 Neut % (Auto) 63.2 % 01/01/24 21:05 Lymph % (Auto) 23.6 % 01/01/24 21:05 Coffee % (Auto) 10.9 % 01/01/24 21:05 Eos % (Auto) 1.4 % 01/01/24 21:05 Baso % (Auto) 0.5 % 01/01/24 21:05 Neut # (Auto) 6.84 10^3/uL (1.8-7.7) 01/01/24 21:05 Lymph # (Auto) 2.6 10^3/uL (0.8-4.8) 01/01/24 21:05 Coffee # (Auto) 1.2 10^3/uL (0.2-0.9) H 01/01/24 21:05 Eos # (Auto) 0.2 10^3/uL (0.0-0.8) 01/01/24 21:05 Baso # (Auto) 0.1 10^3/uL (0.0-0.1) 01/01/24 21:05 Nucleated RBC % (auto) 0 % 01/01/24 21:05 Nucleated RBCs # 0.0 /100WBC 01/01/24 21:05 PT 13.80 SECONDS (12.1-14.9) 01/01/24 21:54 INR 1.03 (0.8-1.2) 01/01/24 21:54 D-Dimer 2.44 ug/mLFEU (0-0.59) H 01/01/24 21:54 Sodium 135 mmol/L (136-145) L 01/01/24 21:05 Potassium 4.0 mmol/L (3.5-5.1) 01/01/24 21:05 Chloride 97 mmol/L (98-107) L 01/01/24 21:05 Carbon Dioxide 25 mmol/L (22-29) 01/01/24 21:05 Anion Gap 17.0 (5-19) 01/01/24 21:05 BUN 26 mg/dL (8-23) H 01/01/24 21:05 Creatinine 0.9 mg/dL (0.7-1.2) 01/01/24 21:05 GFR Calculation 83.7 mL/min (90-130) L 01/01/24 21:05 Glucose 110 mg/dL (65-115) 01/01/24 21:05 Calculated Osmolality 285 mOsm/kg (285-295) 01/01/24 21:05 Calcium 10.2 mg/dL (8.5-10.5) 01/01/24 21:05 Total Bilirubin 0.6 mg/dL (0.15-1.2) 01/01/24 21:05 AST 12 U/L (0-40) 01/01/24 21:05 ALT 7 U/L (0-41) 01/01/24 21:05 Alkaline Phosphatase 74 U/L (40-130) 01/01/24 21:05 Troponin T Baseline 21 ng/L (0-15) H 01/01/24 21:05 Troponin T 120 Minute 21.59 ng/L (0-15) H 01/01/24 22:50 Delta Troponin T 0.59 ABS# (0-10) 01/01/24 22:50 Total Protein 7.3 g/dL (6.6-8.7) 01/01/24 21:05 Albumin 4.0 g/dL (3.5-5.2) 01/01/24 21:05 Globulin 3.3 g/dL (1.3-4.6) 01/01/24 21:05 Lipase 38 U/L (13-60) 01/01/24 21:05 Discharge Plan Discharge Patient Disposition: Admitted As Inpatient Clinical Impression: Pulmonary embolism, Hypoxemia Condition: Stable Coding Level of Care Code ED Division Leader for Tay Grady
[2024-01-01 21:12] LABS: Basophils # 0.1 10^3/uL (0.0-0.1); Basophils % 0.5 %; Eosinophils # 0.2 10^3/uL (0.0-0.8); Eosinophils % 1.4 %; Lymphocytes # 2.6 10^3/uL (0.8-4.8); Lymphocytes % 23.6 %; Mean Corpuscular HGB Conc 34.6 g/dL (30-55); Mean Corpuscular Hemoglobin 31.4 pg (27-33); Mean Corpuscular Volume 90.9 fl (82-101); Mean Platelet Volume 10.2 fL (7.4-10.4); Monocytes # 1.2 10^3/uL (0.2-0.9); Monocytes % 10.9 %; Neutrophils # 6.84 10^3/uL (1.8-7.7); Neutrophils % 63.2 %; Nucleated Red Blood Cells % 0 %; Platelet Count 307 10^3/cmm (157-399); Red Blood Count 5.06 10^6/uL (3.85-5.65); Red Cell Distribution Width 11.1 % (12.1-15.1); White Blood Count 10.81 10^3/uL (3.29-11.43)
[2024-01-01] MEDS: sodium chloride 0.9% 1,000 ML 999 ML IV (21:22)
[2024-01-01 21:28] VITALS: BP 107/62; RESP 12; O2SAT 94
[2024-01-01 21:42] LABS: Troponin(5th) Baseline 21 ng/L (0-15)
[2024-01-01 21:43] LABS: Alanine Aminotransferase 7 U/L (0-41); Alkaline Phosphatase 74 U/L (40-130); Aspartate Amino Transferase 12 U/L (0-40); Blood Urea Nitrogen 26 mg/dL (8-23); Calcium 10.2 mg/dL (8.5-10.5); Carbon Dioxide 25 mmol/L (22-29); Chloride 97 mmol/L (98-107); Creatinine Clr Calc Pharmacy 62.1239; Globulin 3.3 g/dL (1.3-4.6); Glomerular Filtration Rate 83.7 mL/min (90-130); Glucose 110 mg/dL (65-115); Lipase 38 U/L (13-60); Osmolality Calculated 285 mOsm/kg (285-295); Sodium 135 mmol/L (136-145); Total Bilirubin 0.6 mg/dL (0.15-1.2); Total Protein 7.3 g/dL (6.6-8.7)
[2024-01-01 22:16] LABS: INR 1.03 (0.8-1.2)
[2024-01-01 22:19] LABS: D Dimer 2.44 ug/mLFEU (0-0.59)
--- NOTE | 2024-01-01 22:21 | CTR_ITS ---
PROCEDURE INFORMATION: Exam: CTA Chest With Contrast Exam date and time: 01/01/2024 11:06 PM Age: 68 years old Clinical indication: Shortness of breath; Additional info: SOB TECHNIQUE: Imaging protocol: Computed tomographic angiography of the chest with contrast. Exam focused on the arteries. 3D rendering (Not supervised by radiologist): MIP and/or 3D reconstructed images were created by the technologist. Radiation optimization: All CT scans at this facility use at least one of these dose optimization techniques: automated exposure control; mA and/or kV adjustment per patient size (includes targeted exams where dose is matched to clinical indication); or iterative reconstruction. Contrast material: OMNI 350; Contrast volume: 100 ml; Contrast route: INTRAVENOUS (IV); COMPARISON: CR (CHEST, ) 01/01/2024 9:09 PM RADIATION DOSE METRICS: Total DLP (mGy-cm): 302.71 FINDINGS: Pulmonary arteries: Left pulmonary embolism with thrombus within the left main pulmonary artery extending into the upper lobe, inter lobar, lingular and lower lobe branches. There is no thrombus noted on the right. Possible pulmonary infarcts in the left lower lobe. Aorta: There is no aortic aneurysm. Celiac trunk and mesenteric arteries: Limited evaluation of the upper abdomen demonstrates patent the disease celiac artery origin. Cholelithiasis. Other arteries: There is atherosclerotic disease. Lungs: Emphysematous changes in the lung apices. Bibasal atelectasis versus scarring. 6.6 mm nodule in the right middle lobe. 6.9 mm calcified granuloma in the left lower lobe. Recommend CT Chest at 6-12 months to confirm persistence of the nodule, then CT Chest at 3 years and 5 years. (Reference: Zina) Pleural spaces: No pleural effusion or pneumothorax noted. Heart: There is no cardiomegaly. There is no pericardial effusion. Heart RV/LV ratio: The RV/LV ratio is 0.97. Lymph nodes: No pathologically enlarged lymph nodes (by short axis size criteria). Bones/joints: No acute osseous abnormality. There is degenerative disease of the spine. Soft tissues: Unremarkable. CT/CT angio chest PE protcl [id number] IMPRESSION: 1. Left pulmonary embolism with thrombus extending into the upper, interlobar, lingula and lower lobe branches. No evidence of right heart strain. Possible pulmonary infarct in the left lower lobe. 2. 6.6 mm nodule in the right middle lobe. COMMENTS: The presence of pulmonary emphysema on CT is an independent risk factor for lung cancer. In the absence of a history or active diagnosis of lung cancer, it is recommended that this patient with emphysema be evaluated for enrollment in a low dose CT lung cancer screening program. REFERENCES: Zina Angulo et al. Guidelines for Management of Incidental Pulmonary Nodules Detected on CT Images: From the Fleischner Society 2017. Radiology. 2017;284(1):228-243.
[2024-01-01] MEDS: AZITHROMYCIN ADD-Vantage 500 MG in 0.9% NaCl ADD-Vantage 250 ML 250 MG IV (22:41)
[2024-01-01] MEDS: cefTRIAXone 1,000 mg SDV 1000 MG IVP (22:42)
[2024-01-01 22:49] VITALS: BP 123/73; PULSE 76; RESP 22; O2SAT 94
--- NOTE | 2024-01-01 22:55 | ECG_ITS ---
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 Measurements Intervals [place] Rate: 72 P: 46 [place]: 144 QRS: 19 QRSD: 91 T: 32 QT: 386 QTc: 425 Interpretive Statements SINUS RHYTHM WITH OCCASIONAL SUPRAVENTRICULAR PREMATURE COMPLEXES NONSPECIFIC ST ELEVATION [0.05+ mV ST ELEVATION] Compared to ECG 01/01/2024 21:06:42 No significant changes Electronically Signed On 01-06-2024 21:08:11 INCOME TAX MANAGER by Tari Tesfaye M.D. [email or web address]
[2024-01-01 23:00] VITALS: BP 124/68; PULSE 67; RESP 18; O2SAT 93
[2024-01-01] MEDS: iohexol 350 mg/mL 500 mL Btl (per mL) IV (23:12)
[2024-01-01 23:17] LABS: Troponin 5 2HR 21.59 ng/L (0-15); Troponin 5 2HR Delta 0.59 ABS# (0-10)
--- NOTE | 2024-01-01 23:40 | PM.HP ---
Providers/Chief Complaint Primary Care Provider: AYESHA Torres Chief Complaint: CHEST PAIN History of Present Illness Hussain Parada is a 68 year old male with no significant history other than back pain, numbness above knee on left side of his leg, hypertension, presented with chief complaint of left-sided chest pain, neck pain which gets worse on movement. Patient is stating that this has been going on for a while and got worse in last 24 hours, he has not noticed any nausea vomiting diarrhea fever but endorsing sore throat. Patient is stating that he is physically active. No history of cancer. Stating that he has nocturia and urinates a lot at nighttime. He is complaining of back pain and numbness left thigh area. He is waiting for MRI approval outpatient. In the ER workup showed PVCs sinus bradycardia, hemodynamic stable but high D-dimer CTA chest requested, patient seems to have bilateral lower infiltrate We are waiting on official report of CTA chest, I have requested respiratory panel Patient has history of lumbar radiculopathy status post laminectomy L3-L4 by Dr. Cloud 2020 Trigeminal neuralgia decompressive surgery 2016 at [facility] Review of Systems Eyes: Denies: change in vision ENMT: Denies: throat pain Card: Reports: chest pain and dyspnea on exertion Resp: Reports: dyspnea GI: Denies: abdominal pain : Denies: flank pain Musc: Reports: neck pain Medications/Allergies Home Medications Medication Instructions Recorded Confirmed Last Taken Type pantoprazole 40 mg tablet,delayed 40 mg PO DAILY #90 tabs 08/28/23 12/27/23 10/07/23 Rx release (Protonix) cyclobenzaprine 10 mg tablet 10 mg PO .Bedtime 30 days #30 tabs 09/06/23 12/27/23 10/07/23 Rx ibuprofen 800 mg tablet 800 mg PO Q8H PRN pain #20 tabs 10/08/23 12/27/23 Unknown Rx methocarbamol 500 mg tablet 1,000 mg (2 x 500 mg) PO Q8H #30 10/08/23 12/27/23 Unknown Rx tabs naproxen 500 mg tablet 500 mg PO BID PRN Pain 10/08/23 12/27/23 10/07/23 History sennosides 8.6 mg-docusate sodium 1 - 2 tab PO BID PRN Constipation 10/08/23 12/27/23 Unknown History 50 mg tablet triamcinolone acetonide 0.1 % 1 applic topical TID PRN Skin 10/08/23 12/27/23 Unknown History topical ointment Irritation hydrocodone 5 mg-acetaminophen 325 1 tab PO Q6H PRN pain 7 days #21 10/29/23 12/27/23 Unknown Rx mg tablet tabs lisinopril 10 mg tablet 10 mg PO DAILY #30 tabs 12/18/23 12/27/23 Unknown Rx bwmbdmto-yyjjupyjr-cdldfhun 3.5 1 drp ophthalmic (eye) Q6H #5 mL 12/27/23 12/27/23 Unknown Rx mg/mL-10,000 unit/mL-0.1% eye drops Allergies Allergy/AdvReac Type Severity Reaction Status Date / Time No Known Allergies Allergy Verified 01/01/24 21:05 PFSH Acute PFSH: Medical History Conjunctivitis History of skin cancer Skin lesions Actinic keratosis Hornet sting Ganglion cyst of foot Upper respiratory infection Colon polyps Medication management Prostate cancer screening Back pain, lumbosacral DDD (degenerative disc disease), lumbar Thoracic back pain Lumbar back sprain Lumbar back pain Gastroesophageal reflux disease Seborrheic dermatitis Vitamin D deficiency Anxiety and depression Trigeminal neuralgia Essential hypertension Osteoarthritis Surgical History H/O shoulder surgery Family History Other Cancer Social History Smoking and tobacco/nicotine status: tobacco/nicotine user, details unknown Vitals/I&O/Wt Last Vital Signs Temp 97.9 F 01/01/24 20:55 Pulse 76 01/01/24 22:49 Resp 22 H 01/01/24 22:49 BP 123/73 01/01/24 22:49 Pulse Ox 94 01/01/24 22:49 O2 Del Method Room Air 01/01/24 22:49 O2 Flow Rate 2 01/01/24 21:28 01/01/24 01/01/24 01/02/24 14:59 22:59 06:59 Intake Total 1000 / 1000 Balance 1000 / 1000 Weight last 48 hrs Weight 56.699 kg Physical Exam Narrative: Patient is awake and alert Currently on room air Hemodynamically stable No active Rester distress Currently on room air S1, S2 Complaining of pain on movement of neck, pain is around the neck area, left shoulder and left chest lancinating pain Chronic numbness left upper thigh Nonfocal neuroexam Patient is not confused, afebrile no signs of meningitis Data 01/01/24 21:05 01/01/24 21:05 Micro: Microbiology 01/01/24 22:19 Blood Culture - Preliminary Blood SPECIMEN COLLECTED 01/01/24 22:17 Blood Culture - Preliminary Blood SPECIMEN COLLECTED A&P Assessment and plan (1) Essential hypertension: (2) Upper respiratory infection: (3) Gastroesophageal reflux disease: Qualifiers: Esophagitis presence: esophagitis presence not specified Qualified Code(s): K21.9 - Gastro-esophageal reflux disease without esophagitis (4) Lumbar back pain: (5) D-dimer, elevated: (6) Pulmonary embolism: Plan Nonprovoked pulmonary embolism Symptomatic PE No sign of right heart strain Check PSA Patient has back pain which is chronic Endorsing nocturia Start therapeutic Lovenox Check echo and BNP Troponin unremarkable Will need Eliquis at the time of discharge No evidence of pneumonia and discontinue antibiotics No hemodynamic instability Hypertension: Continue lisinopril For neck pain will give Flexeril and opioids for now Check respiratory panel Full code Cardiac diet DVT prophylaxis covered with therapeutic Lovenox Attestations Medical Necessity Statement*: Anticipating discharge within 48 hours Diagnoses Essential hypertension I10 Upper respiratory infection J06.9 Gastroesophageal reflux disease, unspecified whether esophagitis present K21.9 Esophagitis presence: esophagitis presence not specified Lumbar back pain M54.5 D-dimer, elevated R79.89 Pulmonary embolism I26.99
[2024-01-01 23:57] VITALS: BP 124/68; PULSE 82; RESP 18; O2SAT 93
[2024-01-02] VITALS (9 sets, daily range): BP systolic 95–159; BP diastolic 54–81; PULSE 45–79; RESP 18–24; TEMP 36.3–36.7; O2SAT 91–98; BMI 20.2
[2024-01-02 00:26] LABS: PSA Screen - Urology 1.49 ng/mL (0-4)
[2024-01-02 00:27] LABS: NT Pro B Type Natriuretic Pept 57 pg/mL (0-125)
[2024-01-02] MEDS: enoxaparin 60 mg/0.6 mL Syringe SUBCUT ×2 (00:42→12:06)
--- NOTE | 2024-01-02 01:00 | USCV_ITS ---
KarmaHussain Age: 68 Gender: M : 1955 Exam Date: 01/02/2024 00:48 Ordering Phys: Hector Harvey MD Technologist: ROBBY [place] [facility] [place]: swelling HISTORY: swelling PROCEDURES: Venous duplex imaging was performed in bilateral lower extremities. The following venous structures were evaluated: common femoral vein, profunda vein, proximal portion of the greater saphenous vein, superficial femoral vein, and the popliteal vein. In addition, the posterior tibial and peroneal veins were evaluated. FINDINGS: Normal 2-D Doppler and augmentation and compressibility throughout the lower extremity venous structures. Additional imaging through the proximal calf veins also reveals no thrombus. Limited evaluation of the greater saphenous vein is patent with no thrombus. CONCLUSIONS No DVT bilateral lower extremities. Dr. Bethany Panda DO (Electronically Signed) Final Date: 03 January 2024 09:58 S
--- NOTE | 2024-01-02 01:00 | USCV_ITS ---
Hussain Parada Age: 68 Gender: M : 1955 Exam Date: 01/02/2024 01:17 Ordering Phys: Hector Harvey MD Technologist: ROBBY [place]am [place] [facility] [place]ication: CHF BP: 159 / 72 HR: 66 Rhythm: Sinus Technical Quality: Adequate MEASUREMENTS (Male / Female) Normal Values 2D ECHO LV Diastolic Diameter PLAX 4.2 cm 4.2 - 5.9 / 3.9 - 5.3 cm IVS Diastolic Thickness 1.8 cm 0.6 - 1.0 / 0.6 - 0.9 cm IVS Systolic Thickness 2.0 cm LVPW Diastolic Thickness 1.3 cm 0.6 - 1.0 / 0.6 - 0.9 cm LVPW Systolic Thickness 1.3 cm LVOT Diameter 1.8 cm LV Ejection Fraction 2D Teich 62.4 % LV Ejection Fraction MOD 4C 62.8 % LV Ejection Fraction MOD 2C 60.2 % LV Ejection Fraction 2C AL 62.6 % LA Diameter 4.9 cm Aorta at Sinotubular Diameter 2.9 cm IVC Diameter 0.7 cm M-MODE LA Ao Ratio MM 1.6 AV Cusp Separation MM 2.0 cm DOPPLER AV Peak Velocity 120.0 cm/s LVOT Peak Velocity 115.0 cm/s AV Area Cont Eq vti 2.7 cm squared AV Area Cont Eq pk 2.4 cm squared MV Peak Velocity 104.0 cm/s MV Area PHT 3.2 cm squared Mitral E to A Ratio 0.8 TV Peak Velocity 258.7 cm/s TR Peak Velocity 270.0 cm/s TR Peak Gradient 29.2 mmHg TV Peak E Velocity 51.0 cm/s Right Atrial Pressure 3.0 mmHg Pulmonary Artery Systolic Pressu 32.2 mmHg PV Peak Velocity 88.0 cm/s FINDINGS Left Ventricle Normal left ventricular size, systolic function and wall thickness, with no regional wall motion abnormalities. Left ventricular ejection fraction is estimated at 60 %. Grade I/IV diastolic dysfunction (abnormal relaxation filling pattern), normal to mildly elevated filling pressures. Right Ventricle The right ventricle is normal in size and function. Right Atrium The right atrium is normal in size. Left Atrium Moderately increased left atrial size. Mitral Valve Mildly thickened mitral valve. No mitral valve stenosis. Trace mitral valve regurgitation. Aortic Valve Moderate aortic valve calcification. No aortic valve stenosis. Trace aortic valve regurgitation. Tricuspid Valve Mild tricuspid valve regurgitation. Pulmonic Valve Structurally normal pulmonic valve without significant stenosis. There is no pulmonic regurgitation. Pericardium Normal pericardium without effusion. Aorta Normal ascending aorta dimension. IVC The inferior vena cava appears normal. CONCLUSIONS Normal left ventricular size, systolic function and wall thickness, with no regional wall motion abnormalities. Left ventricular ejection fraction is estimated at 60 %. Grade I/IV diastolic dysfunction (abnormal relaxation filling pattern), normal to mildly elevated filling pressures. Moderately increased left atrial size. Mild tricuspid valve regurgitation. There is no pericardial effusion. Pulmonary artery systolic pressure is within normal limits. Right atrial pressure is around 5 mm of mercury. Hector Lemus MD (Electronically Signed) Final Date: 03 January 2024 20:09 S
[2024-01-02] MEDS: HYDROcodone-acetaminophen 5-325 mg Tablet 1 TAB PO ×2 (01:28→10:47)
[2024-01-02 02:29] LABS: Adenovirus Not Detected (NOT DETECT); Chlamydia Pneumoniae Not Detected (NOT DETECT); Coronavirus 229E,HKU1,NL63,OC4 Not Detected (NOT DETECT); Human Metapneumovirus Not Detected (NOT DETECT); Human Rhinovirus/Enterovirus Not Detected (NOT DETECT); Influenza A Not Detected (NOT DETECT); Influenza A H1 Not Detected (NOT DETECT); Influenza A H1-2009 Not Detected (NOT DETECT); Influenza A H3 Not Detected (NOT DETECT); Influenza B Not Detected (NOT DETECT); Mycoplasma Pneumoniae Not Detected (NOT DETECT); Parainfluenza Virus Type 1 Not Detected (NOT DETECT); Parainfluenza Virus Type 2 Not Detected (NOT DETECT); Parainfluenza Virus Type 3 Not Detected (NOT DETECT); Parainfluenza Virus Type 4 Not Detected (NOT DETECT); Respiratory Syncytial Virus A Not Detected (NOT DETECT); Respiratory Syncytial Virus B Not Detected (NOT DETECT); SARS-COV-2 Not Detected (NOT DETECT)
[2024-01-02 03:12] LABS: Basophils % 0.2 %; Eosinophils # 0.1 10^3/uL (0.0-0.8); Eosinophils % 0.8 %; Lymphocytes # 1.4 10^3/uL (0.8-4.8); Lymphocytes % 17.3 %; Mean Corpuscular HGB Conc 34.9 g/dL (30-55); Mean Corpuscular Hemoglobin 32.1 pg (27-33); Mean Platelet Volume 9.2 fL (7.4-10.4); Monocytes # 0.9 10^3/uL (0.2-0.9); Monocytes % 10.6 %; Neutrophils # 5.89 10^3/uL (1.8-7.7); Neutrophils % 70.9 %; Nucleated Red Blood Cells % 0 %; Platelet Count 278 10^3/cmm (157-399); Red Blood Count 4.24 10^6/uL (3.85-5.65); Red Cell Distribution Width 11.2 % (12.1-15.1); White Blood Count 8.32 10^3/uL (3.29-11.43)
[2024-01-02 03:35] LABS: Troponin 5 6HR 20.61 ng/L (0-15)
[2024-01-02 03:37] LABS: Anion Gap 14.3 (5-19); Blood Urea Nitrogen 23 mg/dL (8-23); C Reactive Protein 68.3 mg/L (0.0-4.9); Calcium 9.1 mg/dL (8.5-10.5); Carbon Dioxide 23 mmol/L (22-29); Chloride 102 mmol/L (98-107); Creatinine Clr Calc Pharmacy 88.1194; Glomerular Filtration Rate 95.8 mL/min (90-130); Glucose 106 mg/dL (65-115); Magnesium 1.9 mg/dL (1.7-2.3); Osmolality Calculated 284 mOsm/kg (285-295); Phosphorus 3.1 mg/dL (2.5-4.5); Potassium 4.3 mmol/L (3.5-5.1); Sodium 135 mmol/L (136-145)
[2024-01-02 03:42] LABS: Troponin 5 6HR Delta -0.39 ng/L (0-12)
--- NOTE | 2024-01-02 04:26 | ECG_ITS ---
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 Measurements Intervals [place] Rate: 48 P: 50 IN: 146 QRS: 44 QRSD: 101 T: 38 QT: 466 QTc: 420 Interpretive Statements SINUS BRADYCARDIA Compared to ECG 01/01/2024 21:17:33 Sinus rhythm no longer present ST (T wave) deviation no longer present Electronically Signed On 01-06-2024 21:08:04 MISSION MANAGER by Tari Tesfaye M.D. [email or web address]
[2024-01-02] MEDS: azithromycin 250 mg Tablet 500 MG PO (10:00)
[2024-01-02] MEDS: sennosides-docusate Tablet 2 TAB PO (10:00)
[2024-01-02] MEDS: lisinopril 10 mg Tablet PO (10:04)
[2024-01-02] MEDS: tamsulosin 0.4 mg Capsule PO (10:47)
--- NOTE | 2024-01-02 11:07 | P.DS_ITS ---
Discharge Providers Date of Admission: 01/02/24 01:00 Date of Discharge: January 02, 2024 Attending Provider at Admission: Hector Harvey MD Attending Provider at Discharge: Harjinder Iqbal MD Primary Care Provider: AYESHA Torres Diagnoses at Discharge Discharge Diagnosis (1) Essential hypertension: Status: Acute (2) Upper respiratory infection: Status: Acute (3) Gastroesophageal reflux disease: Status: Acute Qualifiers: Esophagitis presence: esophagitis presence not specified Qualified Code(s): K21.9 - Gastro-esophageal reflux disease without esophagitis (4) Lumbar back pain: Status: Acute (5) D-dimer, elevated: Status: Acute (6) Pulmonary embolism: Status: Acute Reason for Visit Reason for Visit: CHEST PAIN Brief History: History as per HPI: Hussain Parada is a 68 year old male with no significant history other than back pain, numbness above knee on left side of his leg, hypertension, presented with chief complaint of left-sided chest pain, neck pain which gets worse on movement. Patient is stating that this has been going on for a while and got worse in last 24 hours, he has not noticed any nausea vomiting diarrhea fever but endorsing sore throat. Patient is stating that he is physically active. No history of cancer. Stating that he has nocturia and urinates a lot at nighttime. He is complaining of back pain and numbness left thigh area. He is waiting for MRI approval outpatient. In the ER workup showed PVCs sinus bradycardia, hemodynamic stable but high D- dimer CTA chest requested, patient seems to have bilateral lower infiltrate Hospital Course Hospital Course Patient was admitted to the hospital further evaluation and management of pulmonary embolism as seen on CTA. He was started on full dose anticoagulation with Lovenox. Patient responded well to the treatment and his oxygen requirement remained stable both at rest and ambulation. There were no concerns for right heart strain on CTA. Echocardiogram was done to results awaited. Patient continued to have mild chest pain in setting of pulmonary infarction for which she has been discharged on tramadol and lidocaine patches. Given concerns for unprovoked pulmonary embolism PSA was checked to rule out cancer reported normal. CEA has been sent out. Patient has recently undergone endoscopy and colonoscopy which was reported normal without any polyp. He does have raspiness of his voice with a possible mass in his throat for which he is due to follow-up with his PCP for ENT follow-up for biopsy. He does have 6.6 mm nodule in his lung for which he needs to follow-up with repeat CT scan in 6 months. He is been discharged hemodynamically stable condition advised to follow-up with his PCP within next 1 week. He is to take Eliquis 10 mg twice daily for next 1 week followed by 5 mg twice daily for next 6 months at the least. Physical Exam Narrative: General: No acute distress, AO x3 HEENT: PERRLA, pupils bilaterally equal and reactive Chest: Normal vesicular breath sounds, no added sounds, equal good air entry bilaterally CVS: S1-S2 regular, no murmurs, no tachycardia, no gallops, no rubs Abdomen: Soft, nontender, no organomegaly, bowel sounds present Neuro: No focal deficits, no facial deformity, AO x3, power 5/5 in all limbs Discharge Data Studies Completed and Pending Completed Studies During Hospitalization Category Date Time Status CTA chest [CT angio chest PE protcl [id number]] Stat Cat Scan 01/01/24 22:21 Completed XR chest 1V portable [id number] Stat Exams 01/01/24 20:55 Completed Pending at discharge Category Date Time Status B12 [Vitamin B12] Routine Lab 01/02/24 03:00 Received Blood Culture Stat Lab 01/01/24 22:19 Results Folate Level AM LABS Lab 01/03/24 04:00 Ordered MAG [Magnesium] AM LABS Lab 01/03/24 04:00 Ordered MAG [Magnesium] AM LABS Lab 01/04/24 04:00 Ordered MAG [Magnesium] AM LABS Lab 01/05/24 04:00 Ordered Sputum Culture and Gram Stain Routine Lab 01/01/24 23:50 Uncollected TIBC [Total Iron Binding Capacity] Routine Lab 01/02/24 03:00 [place] [id number] Routine Ultrasound 01/02/24 01:00 Taken CV. echo complete* [id number] Routine Ultrasound 01/02/24 01:00 Taken Radiology Impressions Chest X-Ray 01/01/24 20:55 IMPRESSION: Bibasilar airspace infiltrates. Chest CTA 01/01/24 22:21 IMPRESSION: 1. Left pulmonary embolism with thrombus extending into the upper, interlobar, lingula and lower lobe branches. No evidence of right heart strain. Possible pulmonary infarct in the left lower lobe. 2. 6.6 mm nodule in the right middle lobe. COMMENTS: The presence of pulmonary emphysema on CT is an independent risk factor for lung cancer. In the absence of a history or active diagnosis of lung cancer, it is recommended that this patient with emphysema be evaluated for enrollment in a low dose CT lung cancer screening program. REFERENCES: Zina Angulo et al. Guidelines for Management of Incidental Pulmonary Nodules Detected on CT Images: From the Fleischner Society 2017. Radiology. 2017;284(1):228-243. ADDENDUM: 01/02/24 0014 THIS REPORT CONTAINS FINDINGS THAT MAY BE CRITICAL TO PATIENT CARE. The findings were verbally communicated via telephone conference with Dr. Hollis at 12:11 AM BROTH SETTER on 01/02/2024. The findings were acknowledged and understood. Laboratory Results WBC 8.32 10^3/uL (3.29-11.43) 01/02/24 03:00 RBC 4.24 10^6/uL (3.85-5.65) 01/02/24 03:00 Hgb 13.60 g/dL (11.27-16.99) 01/02/24 03:00 Hct 39.0 % (37-53) 01/02/24 03:00 MCV 92.0 fl (82-101) 01/02/24 03:00 MCH 32.1 pg (27-33) 01/02/24 03:00 MCHC 34.9 g/dL (30-55) 01/02/24 03:00 RDW 11.2 % (12.1-15.1) L 01/02/24 03:00 Plt Count 278 10^3/cmm (157-399) 01/02/24 03:00 MPV 9.2 fL (7.4-10.4) 01/02/24 03:00 Neut % (Auto) 70.9 % 01/02/24 03:00 Lymph % (Auto) 17.3 % 01/02/24 03:00 Caswell % (Auto) 10.6 % 01/02/24 03:00 Eos % (Auto) 0.8 % 01/02/24 03:00 Baso % (Auto) 0.2 % 01/02/24 03:00 Neut # (Auto) 5.89 10^3/uL (1.8-7.7) 01/02/24 03:00 Lymph # (Auto) 1.4 10^3/uL (0.8-4.8) 01/02/24 03:00 Caswell # (Auto) 0.9 10^3/uL (0.2-0.9) 01/02/24 03:00 Eos # (Auto) 0.1 10^3/uL (0.0-0.8) 01/02/24 03:00 Baso # (Auto) 0.0 10^3/uL (0.0-0.1) 01/02/24 03:00 Nucleated RBC % (auto) 0 % 01/02/24 03:00 Nucleated RBCs # 0.0 /100WBC 01/02/24 03:00 PT 13.80 SECONDS (12.1-14.9) 01/01/24 21:54 INR 1.03 (0.8-1.2) 01/01/24 21:54 D-Dimer 2.44 ug/mLFEU (0-0.59) H 01/01/24 21:54 Sodium 135 mmol/L (136-145) L 01/02/24 03:00 Potassium 4.3 mmol/L (3.5-5.1) 01/02/24 03:00 Chloride 102 mmol/L (98-107) 01/02/24 03:00 Carbon Dioxide 23 mmol/L (22-29) 01/02/24 03:00 Anion Gap 14.3 (5-19) 01/02/24 03:00 BUN 23 mg/dL (8-23) 01/02/24 03:00 Creatinine 0.8 mg/dL (0.7-1.2) 01/02/24 03:00 GFR Calculation 95.8 mL/min (90-130) 01/02/24 03:00 Glucose 106 mg/dL (65-115) 01/02/24 03:00 Calculated Osmolality 284 mOsm/kg (285-295) L 01/02/24 03:00 Calcium 9.1 mg/dL (8.5-10.5) 01/02/24 03:00 Phosphorus 3.1 mg/dL (2.5-4.5) 01/02/24 03:00 Magnesium 1.9 mg/dL (1.7-2.3) 01/02/24 03:00 Total Bilirubin 0.6 mg/dL (0.15-1.2) 01/01/24 21:05 AST 12 U/L (0-40) 01/01/24 21:05 ALT 7 U/L (0-41) 01/01/24 21:05 Alkaline Phosphatase 74 U/L (40-130) 01/01/24 21:05 Troponin T Baseline 21 ng/L (0-15) H 01/01/24 21:05 Troponin T 120 Minute 21.59 ng/L (0-15) H 01/01/24 22:50 Delta Troponin T 0.59 ABS# (0-10) 01/01/24 22:50 Troponin T Hi Sens 6Hr 20.61 ng/L (0-15) H 01/02/24 03:00 Troponin T Hi Sens 6Hr Delta -0.39 ng/L (0-12) L 01/02/24 03:00 C-Reactive Protein 68.3 mg/L (0.0-4.9) H 01/02/24 03:00 NT-Pro-B Natriuret Pep 57 pg/mL (0-125) 01/01/24 22:50 Total Protein 7.3 g/dL (6.6-8.7) 01/01/24 21:05 Albumin 4.0 g/dL (3.5-5.2) 01/01/24 21:05 Globulin 3.3 g/dL (1.3-4.6) 01/01/24 21:05 Lipase 38 U/L (13-60) 01/01/24 21:05 PSA Screen 1.49 ng/mL (0-4) 01/01/24 21:05 TSH 2.70 uIU/mL (0.27-4.20) 01/02/24 03:00 Adenovirus (PCR) Not detected (NOT DETECT) 01/02/24 00:28 C. pneumoniae DNA (PCR) Not detected (NOT DETECT) 01/02/24 00:28 Coronavirus 229E (PCR) Not detected (NOT DETECT) 01/02/24 00:28 Human Metapneumovir PCR Not detected (NOT DETECT) 01/02/24 00:28 Influenza A (H1) PCR Not detected (NOT DETECT) 01/02/24 00:28 Influ A (H1/09) PCR Not detected (NOT DETECT) 01/02/24 00:28 Influenza A (H3) PCR Not detected (NOT DETECT) 01/02/24 00:28 Influenza Type A (PCR) Not detected (NOT DETECT) 01/02/24 00:28 Influenza Type B (PCR) Not detected (NOT DETECT) 01/02/24 00:28 M. pneumoniae (PCR) Not detected (NOT DETECT) 01/02/24 00:28 Parainfluenza 1 (PCR) Not detected (NOT DETECT) 01/02/24 00:28 Parainfluenza 2 (PCR) Not detected (NOT DETECT) 01/02/24 00:28 Parainfluenza 3 (PCR) Not detected (NOT DETECT) 01/02/24 00:28 Parainfluenza 4 (PCR) Not detected (NOT DETECT) 01/02/24 00:28 RSV Type A (PCR) Not detected (NOT DETECT) 01/02/24 00:28 RSV Type B (PCR) Not detected (NOT DETECT) 01/02/24 00:28 Entero/Rhino (PCR) Not detected (NOT DETECT) 01/02/24 00:28 SARS-CoV-2 (PCR) Not detected (NOT DETECT) 01/02/24 00:28 Vitals Last Vital Signs Temp 97.5 F L 01/02/24 07:40 Pulse 71 01/02/24 10:00 Resp 18 01/02/24 07:40 BP 121/68 01/02/24 10:00 Pulse Ox 97 01/02/24 07:40 O2 Del Method Nasal Cannula 01/02/24 07:40 O2 Flow Rate 2 01/02/24 08:00 Discharge Plan Discharge Patient Disposition: Home Condition: Stable Prescriptions: New tamsulosin 0.4 mg Capsule 0.4 mg PO DAILY Qty: 30 2RF Eliquis DVT-PE Treat 30D Start 5 mg (74 tabs) tablets,dose pack See Rx Instructions .ROUTE .COMPLEX Qty: 74 0RF Rx Instructions: 10 mg twice daily for next 7 days followed by 5 mg twice daily tramadol 50 mg tablet 50 mg PO Q6H PRN (Reason: pain) Qty: 20 0RF lidocaine 5 % adhesive patch,medicated See Rx Instructions .ROUTE .COMPLEX Qty: 15 0RF Rx Instructions: leave on most painful area for up to 12 hrs Continued pantoprazole [Protonix] 40 mg tablet,delayed release (DR/EC) 40 mg PO DAILY Qty: 90 1RF hydrocodone-acetaminophen 5-325 mg tablet 1 tab PO Q6H PRN (Reason: pain) 7 Days Qty: 21 0RF lisinopril 10 mg tablet 10 mg PO DAILY Qty: 30 0RF sennosides-docusate sodium 8.6-50 mg tablet 1 - 2 tab PO BID PRN (Reason: Constipation) Discharge Orders: Discharge Order (Routine); Ordered 01/02/24 Ordered By: Harjinder Iqbal Referrals: BROCK Queen, BOTTLER HELPER [Primary Care Provider] - 01/09/24 9:20 am Discharge Diet: Regular Discharge Activity: Resume usual activity and Increase activity as tolerated Patient Instructions: Lidocaine (On the skin), Tramadol (By mouth), Tamsulosin (By mouth), Apixaban (By mouth), Pulmonary Embolism (GEN), Opioid Safety Activity Restrictions/Additional Instructions: Take Eliquis for neck 6 months. Take 10 mg twice daily for 1 week followed by 5 mg twice daily for next 6 months at the least. Please follow-up with the PCP within next 1 week. You should follow-up with the ENT physician as an outpatient for biopsy of throat mass. You do have 6.6 mm nodule in the lung which should be followed up with CT scan in 6 months. Discharge Attestations Time Spent in Discharge Care*: greater than 30 min Specific Discharge Activities: educating patient, discussing with pcp/other providers, discussing with caseworker protective services/social workers/dc planners, documenting/other paperwork and evaluating patient/reviewing data Status at Discharge: Cognitive status at discharge: cognitively intact , Behavioral status at discharge: cooperative , Functional status at discharge: independent ambulation , Overall status at discharge: patient is back to baseline Quality Metrics Clinical Quality Measures [ Venous Thromboembolism { Contraindication to Overlap Therapy: None; Overlap threrpy ordered; VTE Discharge Education: Education about anticoagulant therapy/Care Notes given, Education about treatment options/disease process, Medication side effects education, INR/lab monitoring education as applicable, Follow-up arranged, Other; Deep Vein Thrombosis/Pulmonary Embolism Present on Admission: Yes;}] Coding Level of Care Code 25942 Total time (in minutes) for Discharge: 60 Diagnoses Essential hypertension I10 Upper respiratory infection J06.9 Gastroesophageal reflux disease, unspecified whether esophagitis present K21.9 Esophagitis presence: esophagitis presence not specified Lumbar back pain M54.5 D-dimer, elevated R79.89 Pulmonary embolism I26.99
[2024-01-02 12:16] LABS: Carcinoembryonic Antigen 1.5 ng/mL (0.0-4.7)
[2024-01-02 12:48] LABS: Iron 29 ug/dL (59-158); Percent Saturation 16.6 % (20-50); Total Iron Binding Capacity 174 mcg/dl; Unsaturated Iron Binding 145 ug/dL (112-347)
[2024-01-02 13:02] LABS: Vitamin B12 532 pg/mL (232-1245)
== END 2024-01-02 13:00 | disposition home or self-care (01) ==
LOC: ER 01-02 00:31 → MEDSURG 01-02 06:36
PROVIDERS: Emergency Medicine; Admitting Provider Internal Medicine; Emergency Provider Emergency Medicine; PCP Nurse Practitioner Family; Visit Provider Student in an Organized Health Care Education/Training Program
DX: I26.99 Other pulmonary embolism without acute cor pulmonale (principal); I10 Essential (primary) hypertension; J06.9 Acute upper respiratory infection, unspecified; K21.9 Gastro-esophageal reflux disease without esophagitis; M54.50 Low back pain, unspecified; R79.89 Other specified abnormal findings of blood chemistry; R60.0 Localized edema
CPT/HCPCS: 36415; 71045; 71275; 80048; 80053; 82378; 82607; 83540; 83550; 83690; 83735; 83880; 84100; 84443; 84484; 85025; 85378; 85610; 86140; 87040; 87486; 87581; 87633; 93005; 93306; 93970; 94760; 96365; 96372; 96375; 97116; 97161; 99285; G0103; G0378; J0456; J0696; J1650; J7030; J7050; Q0144

== ENCOUNTER 2024-01-07 11:00 | Outpatient (CLI) | payer MEDICARE, MEDICAID, SELFPAY ==
--- NOTE | 2024-01-07 11:00 | MR_ITS ---
WS: [id number] MRI LUMBAR SPINE NONCONTRAST HISTORY: M54.5 - Low back pain, history of laminectomy. COMPARISON: 07/07/2020 TECHNIQUE: Sagittal and axial multisequence imaging is submitted. Mild straightening of the normal lumbar lordosis. Retrolisthesis of L3 and L4 by up to 3.5 mm. Slight loss of height involving the superior endplate of L1 similar to the prior study. No acute fracture. There is a small amount of marrow edema along the corner of L4. Degenerative disc space desiccation and narrowing is most significant at L4-5 and L5-S1. Conus terminates normally at L1. L1-L2: Normal. L2-L3: Mild annular disc bulging, ligamentum flavum and facet arthritis. Mild central stenosis and bi lateral subarticular recess encroachment. Encroachment upon the traversing L3 nerve roots. Progressio n since the prior study. L3-L4: Mild diffuse annular disc bulging with ligamentum flavum and facet disease. Fluid in the facet joints bilaterally. Clumping of the nerve roots in the thecal sac and RIGHT hemilaminectomy defect. Asymmetric disc bulging to the LEFT with a small disc protrusion. Moderate LEFT foraminal stenosis wi th slight progression since the prior study. Mild RIGHT foraminal narrowing. L4-L5: Mild annular disc bulging and osteophytic ridging. Disc encroaches upon the ventral thecal sac . Disc osteophyte in the RIGHT foramen has progressed since the prior study. Mild central and bilater al subarticular recess stenosis. Moderate RIGHT and mild LEFT foraminal stenosis. L5-S1: Mild osteophytic ridging and disc bulging. Mild encroachment upon the subarticular recesses an d S1 nerve roots. Mild bilateral foraminal stenosis, RIGHT greater than LEFT. Paravertebral soft tissues are negative. Mild atherosclerosis aorta. MR/MR lumbar spine wo con* [id number] IMPRESSION: 1. Mild progression of degenerative disc disease and stenosis since the prior study of 07/07/2020. 2. Stable L1 compression fracture. No acute compression fracture. 3. L2-3: Mild central and bilateral subarticular recess encroachment. Disc enc roaches upon the traversing L3 nerve roots. 4. L3-4: RIGHT hemilaminectomy defect. Progression of disc bulging and LEFT fo raminal disc protrusion. Moderate LEFT foraminal stenosis with mild RIGHT amy inal stenosis. 5. L4-5: Enlarging disc osteophyte in the RIGHT foramen. Mild central, bilater al subarticular recess and moderate RIGHT foraminal stenosis. Increasing encroa chment upon the RIGHT L4 exiting nerve root. 6. L5-S1: Mild bilateral foraminal stenosis and subarticular recess encroachme nt.
== END 2024-01-07 11:03 | disposition home or self-care (01) ==
PROVIDERS: PCP Nurse Practitioner Family; Visit Provider Orthopaedic Surgery
DX: M51.362 Other intervertebral disc degeneration, lumbar region with discogenic back pain and lower extremity pain (principal); M99.63 Osseous and subluxation stenosis of intervertebral foramina of lumbar region; M25.78 Osteophyte, vertebrae
CPT/HCPCS: 72148

== ENCOUNTER → 2024-01-31 09:54 | Outpatient (BNVA) | payer MEDICARE, MEDICAID, SELFPAY | PROVIDERS: PCP Nurse Practitioner Family; Visit Provider Nurse Practitioner Family | DX: S40.912A Unspecified superficial injury of left shoulder, initial encounter (principal); X58.XXXA Exposure to other specified factors, initial encounter; L81.4 Other melanin hyperpigmentation; L57.0 Actinic keratosis; L82.1 Other seborrheic keratosis; I78.8 Other diseases of capillaries | CPT/HCPCS: 17000; 99213 ==

== ENCOUNTER → 2024-03-27 10:24 | Outpatient (BNVA) | payer MEDICARE, MEDICAID, SELFPAY | PROVIDERS: PCP Nurse Practitioner Family; Visit Provider Orthopaedic Surgery | DX: M48.062 Spinal stenosis, lumbar region with neurogenic claudication (principal) | CPT/HCPCS: 99213 ==

== ENCOUNTER 2024-07-18 10:45 | Outpatient (CLI) | payer MEDICARE, MEDICAID, SELFPAY ==
--- NOTE | 2024-07-18 10:45 | CTR_ITS ---
PROCEDURE INFORMATION: Exam: CT Chest With Contrast; Diagnostic Exam date and time: 07/18/2024 11:08 AM Age: 68 years old Clinical indication: Condition or disease; Lung condition and disease; Pulmonary nodule, solitary; Additional info: R91.1 - solitary pulmonary nodule TECHNIQUE: Imaging protocol: Diagnostic computed tomography of the chest with contrast. Radiation optimization: All CT scans at this facility use at least one of these dose optimization techniques: automated exposure control; mA and/or kV adjustment per patient size (includes targeted exams where dose is matched to clinical indication); or iterative reconstruction. Contrast material: OMNI 350; Contrast volume: 100 ml; Contrast route: INTRAVENOUS (IV); COMPARISON: CT angio chest PE protcl [id number] 01/01/2024 11:06 PM RADIATION DOSE METRICS: Total DLP (mGy-cm): 283.3 FINDINGS: Thyroid: No significant thyroid pathology. Lungs: Stable polygonal 7 x 5 mm nodule along the undersurface of the minor interlobar fissure in the right mid lung on series 8, image 49, series 5, image 34 consistent with lymph node. Areas of mild pulmonary scar versus atelectasis and few scattered tiny pulmonary nodules are unchanged consistent with benign pathology. There are some subtle ground-glass opacities in the right upper lobe posteromedially (series 5, images 20 through 22 Pleural spaces: No pleural effusion. Heart: No significant pathology. Coronary arteries: Coronary artery calcifications. Esophagus: Mural thickening distal thoracic esophagus. Lymph nodes: No evidence of lymphadenopathy. Vasculature: No evidence of thoracic aortic aneurysm. Diaphragm: Small hiatal hernia. Gallbladder and biliary ducts: Cholelithiasis. Kidneys: Renal cortical cysts seen in the upper poles. Bones/joints: Superior endplate compression deformity of the L1 unchanged compared with the prior exams including CT lumbar spine 10/08/2023. Soft tissues: Mild bilateral gynecomastia. CT/CT chest w con* [id number] IMPRESSION: 1. Stable right mid lung zone perifissural nodule consistent with benign lymph node. 2. Interval appearance of mild right upper lobe ground-glass opacities most likely representing inflammatory pathology. 3. Minor findings noted above including cholelithiasis and small hiatal hernia with mural thickening of the distal thoracic esophagus. COMMENTS: Consistent with the [employer]'s Incidental Findings Committee white paper (J Am Alix Radiol 2018): Any incidental renal lesion less than 1 cm or classified as too small to characterize, or any incidental cystic renal lesion characterized as simple-appearing, is likely benign. No follow-up imaging is recommended for these lesions per consensus recommendations based on imaging criteria.
[2024-07-18] MEDS: iohexol 350 mg/mL 500 mL Btl (per mL) IV (11:21)
[2024-07-18 11:32] LABS: Blood Urea Nitrogen 15 mg/dL (8-23); Glomerular Filtration Rate 83.7 mL/min (90-130)
== END 2024-07-18 10:46 | disposition home or self-care (01) ==
LOC: RAD 10:46
PROVIDERS: PCP Nurse Practitioner Family; Visit Provider Nurse Practitioner Family
DX: R91.1 Solitary pulmonary nodule (principal); R91.8 Other nonspecific abnormal finding of lung field; I25.10 Atherosclerotic heart disease of native coronary artery without angina pectoris; K22.89 Other specified disease of esophagus; K44.9 Diaphragmatic hernia without obstruction or gangrene; K80.20 Calculus of gallbladder without cholecystitis without obstruction; N28.1 Cyst of kidney, acquired; S32.010D Wedge compression fracture of first lumbar vertebra, subsequent encounter for fracture with routine healing; X58.XXXD Exposure to other specified factors, subsequent encounter; N62 Hypertrophy of breast
CPT/HCPCS: 71260; 82565; 84520

== ENCOUNTER 2024-07-31 10:29 | Outpatient (CLI) | payer MEDICARE, MEDICAID, SELFPAY ==
--- NOTE | 2024-07-31 10:30 | US_ITS ---
WS: [id number] Gallbladder and right upper quadrant ultrasound, 07/31/2024 Clinical Data: K80.20 - Calculus of gallbladder without cholecystitis wi... Comparison: None. Findings: The gallbladder shows a stone in the neck of the gallbladder. The wall measures 0.2 cm with no pericholecystic fluid. The common bile duct is 0.5 cm and there are no intrahepatic ductal abnormalities. Liver shows no cysts, masses or dilated intrahepatic ducts. The liver parenchyma shows normal echotexture. The portal vein is normal in size and shows hepatopetal flow. The liver measures 14.4 cm. The pancreas is obscured by overlying bowel gas but no cyst, pseudocyst, or evidence of pancreatitis is noted. Right kidney measures 10.1 cm and there is a small, 2.1 cm cyst within. No hydronephrosis or renal calculi are noted. The aorta and inferior vena cava show no vascular abnormalities. US/US gall bladder [id number] Impression: 1. Stone in the neck of gallbladder. 2. Pancreas obscured by overlying bowel gas.
== END 2024-07-31 10:30 | disposition home or self-care (01) ==
PROVIDERS: PCP Nurse Practitioner Family; Visit Provider Nurse Practitioner Family
DX: K80.20 Calculus of gallbladder without cholecystitis without obstruction (principal); N28.1 Cyst of kidney, acquired
CPT/HCPCS: 76705

== ENCOUNTER → 2024-08-21 13:18 | Outpatient (BNVA) | payer MEDICARE, MEDICAID, SELFPAY | PROVIDERS: PCP Nurse Practitioner Family; Visit Provider Student in an Organized Health Care Education/Training Program | DX: K80.20 Calculus of gallbladder without cholecystitis without obstruction (principal) | CPT/HCPCS: 99203 ==

== ENCOUNTER → 2024-09-04 09:53 | Outpatient (BNVA) | payer MEDICARE, MEDICAID, SELFPAY | PROVIDERS: PCP Nurse Practitioner Family; Visit Provider Nurse Practitioner Family | DX: L21.8 Other seborrheic dermatitis (principal); I78.8 Other diseases of capillaries; Z08 Encounter for follow-up examination after completed treatment for malignant neoplasm; Z85.828 Personal history of other malignant neoplasm of skin; D48.5 Neoplasm of uncertain behavior of skin; L57.0 Actinic keratosis | CPT/HCPCS: 11102; 17000; 99214 ==

== ENCOUNTER → 2024-10-24 16:07 | Outpatient (BNVA) | payer MEDICARE, MEDICAID, SELFPAY | PROVIDERS: PCP Nurse Practitioner Family; Visit Provider Orthopaedic Surgery | DX: M48.062 Spinal stenosis, lumbar region with neurogenic claudication (principal); M54.50 Low back pain, unspecified; M79.604 Pain in right leg; M79.605 Pain in left leg | CPT/HCPCS: 72100 ==

== ENCOUNTER → 2024-11-20 10:40 | Outpatient (BNVA) | payer MEDICARE, MEDICAID, SELFPAY | PROVIDERS: PCP Nurse Practitioner Family; Visit Provider Orthopaedic Surgery | DX: M48.062 Spinal stenosis, lumbar region with neurogenic claudication (principal); Z09 Encounter for follow-up examination after completed treatment for conditions other than malignant neoplasm | CPT/HCPCS: 99213 ==

== ENCOUNTER 2024-12-10 10:51 | Outpatient (CLI) | payer MEDICARE, MEDICAID, SELFPAY ==
--- NOTE | 2024-12-10 11:00 | MR_ITS ---
WS: [id number] MRI LUMBAR SPINE NONCONTRAST HISTORY: Lumbar stenosis, LEFT leg numbness for 1 year. COMPARISON: 01/07/2024 TECHNIQUE: Sagittal and axial multisequence imaging is submitted. Increase in cervical lordosis. Mild narrowing of the cervical canal at C4-5 and C5-6. 2 mm retrolisthesis L2, L3 and L4. Mild reactive marrow changes along the endplates of L2, L3 and L4. No acute compression fracture. Stable mild anterior wedging of L1. Mild disc space narrowing and desiccation, most significant at L4-5 and L5-S1. Conus terminates normally at L1. L1-L2: Mild facet arthritis. Small amount of fluid in the facet joints. No stenosis. L2-L3: Mild annular disc bulging with moderate ligamentum flavum and facet arthritis. Greater facet disease on the LEFT narrowing the subarticular recess. There is mild subarticular recess and bilateral foraminal stenosis. Greater stenosis LEFT foramen. L3-L4: Diffuse annular disc bulging with osteophytic ridging, ligamentum flavum and facet arthritis. LEFT foraminal disc protrusion. Mild subarticular recess stenosis. Moderate LEFT and mild RIGHT foraminal stenosis. L4-L5: Diffuse annular disc bulging with osteophytic ridging. Ligamentum flavum hypertrophy and facet arthritis. Disc osteophyte complexes in the foramina. Moderate bilateral foraminal stenosis. Mild central and subarticular recess narrowing. L5-S1: Mild annular disc bulging with osteophytic ridging. Facet arthritis. Mild bilateral foraminal stenosis, RIGHT greater than LEFT. MR/MR lumbar spine wo con* [id number] IMPRESSION: 1. Minimal progression of degenerative disc disease and stenoses since 024. 2. No acute compression fractures. Stable remote L1 compression fracture. 3. Moderate bilateral foraminal stenosis at L4-5 with disc osteophyte complexe s in the foramen. Mild central and subarticular recess stenosis. 4. Moderate LEFT and mild RIGHT foraminal stenosis at L3-4. LEFT foraminal dis c osteophyte protrusion contributing to the stenosis. Mild subarticular recess stenosis. 5. Mild subarticular recess and bilateral foraminal stenosis at L2-3. 6. Mild foraminal stenosis at L5-S1, RIGHT greater than LEFT.
== END 2024-12-10 10:52 | disposition home or self-care (01) ==
LOC: RAD 10:52
PROVIDERS: PCP Nurse Practitioner Family; Visit Provider Orthopaedic Surgery
DX: M48.062 Spinal stenosis, lumbar region with neurogenic claudication (principal); M51.360 Other intervertebral disc degeneration, lumbar region with discogenic back pain only
CPT/HCPCS: 72148

== ENCOUNTER → 2025-01-01 13:21 | Outpatient (BNVA) | payer MEDICARE, MEDICAID, SELFPAY | PROVIDERS: PCP Nurse Practitioner Family; Visit Provider Orthopaedic Surgery | DX: M48.062 Spinal stenosis, lumbar region with neurogenic claudication (principal) | CPT/HCPCS: 99214 ==

== ENCOUNTER → 2025-01-21 14:50 | Outpatient (BNVA) | payer MEDICARE, MEDICAID, SELFPAY | PROVIDERS: PCP Nurse Practitioner Family; Visit Provider Nurse Practitioner Family | DX: Z12.5 Encounter for screening for malignant neoplasm of prostate (principal); I10 Essential (primary) hypertension; K21.9 Gastro-esophageal reflux disease without esophagitis; Z79.899 Other long term (current) drug therapy | CPT/HCPCS: 80053; 80061; 81003; 82306; 83036; 84443; 85025; G0103 ==

== ENCOUNTER → 2025-01-26 13:41 | Outpatient (BNVA) | payer MEDICARE, MEDICAID, SELFPAY | PROVIDERS: PCP Nurse Practitioner Family; Referring Provider Orthopaedic Surgery; Visit Provider Anesthesiology Pain Medicine | DX: M48.062 Spinal stenosis, lumbar region with neurogenic claudication (principal) | CPT/HCPCS: 99204 ==

== ENCOUNTER → 2025-02-04 10:05 | Outpatient (BNVA) | payer MEDICARE, MEDICAID, SELFPAY | PROVIDERS: PCP Nurse Practitioner Family; Visit Provider Anesthesiology Pain Medicine | DX: M54.16 Radiculopathy, lumbar region (principal) | CPT/HCPCS: 64483; 64484; J1100; J3490; J9999 ==